=== PATIENT | female | born 1970 | race Caucasian/White ===

== ENCOUNTER 2020-06-12 13:43 | Outpatient (REF) | payer MEDICARE, MEDICAID, SELFPAY ==
--- NOTE | 2020-06-12 13:52 | XR_ITS ---
EXAMINATION: XR HIP, RIGHT CLINICAL INFORMATION: Right hip pain. COMPARISON: None. TECHNIQUE: AP and frog lateral views of the right hip. FINDINGS: The femoral head is well seated in the acetabulum. Hip joint space is preserved. No evidence of subarticular sclerosis or cystic changes. No osteophytic changes are noted. No soft tissue calcifications. Normal osseous mineralization. Visualized right sacroiliac joint and pubic symphysis are unremarkable. Essentially, no significant abnormality of the bones, joints or soft tissues is demonstrated. XR/XR hip RT min 2V IMPRESSION: Unremarkable right hip radiographs.
== END 2020-06-12 13:44 | disposition home or self-care (01) ==
LOC: HO.XRAY 13:43
PROVIDERS: PCP Student in an Organized Health Care Education/Training Program; Visit Provider Student in an Organized Health Care Education/Training Program
DX: M25.551 Pain in right hip (principal)
CPT/HCPCS: 73502

== ENCOUNTER → 2020-06-24 15:33 | Outpatient (BNVA) | payer MEDICARE, MEDICAID, SELFPAY | PROVIDERS: PCP Student in an Organized Health Care Education/Training Program; Referring Provider Student in an Organized Health Care Education/Training Program; Visit Provider Internal Medicine Gastroenterology | DX: Z76.89 Persons encountering health services in other specified circumstances (principal) ==

== ENCOUNTER 2020-08-09 11:13 | Outpatient (REF) | payer MEDICARE, MEDICAID, SELFPAY | END 2020-08-09 11:14 | disposition home or self-care (01) | LOC: HO.LAB 11:13 | PROVIDERS: PCP Student in an Organized Health Care Education/Training Program; Visit Provider Obstetrics & Gynecology | DX: R10.2 Pelvic and perineal pain (principal); B37.3 Candidiasis of vulva and vagina; N92.6 Irregular menstruation, unspecified | CPT/HCPCS: 87491; 87591; 99212 ==

== ENCOUNTER 2020-08-13 13:20 | Outpatient (REF) | payer MEDICARE, MEDICAID, SELFPAY ==
--- NOTE | 2020-08-13 13:24 | US_ITS ---
EXAMINATION: ULTRASOUND PELVIS COMPLETE. CLINICAL INFORMATION: Pelvic pain. COMPARISON: None TECHNIQUE: Transabdominal and transvaginal ultrasound pelvis is performed. Patient had difficulty tolerating transvaginal ultrasound. FINDINGS: The uterus is anteverted and anteflexed measuring 7.6 cm in length, 3.3 cm AP and 4.2 cm in transverse dimension. Endometrial thickness is 0.3 cm. No focal lesions seen. The cervix appears unremarkable. Both ovaries are not seen. There is no free fluid cul-de-sac. US/US pelvic complete IMPRESSION: Unremarkable uterus. The ovaries are not seen.
--- NOTE | 2020-08-13 13:24 | US_ITS ---
EXAMINATION: ULTRASOUND PELVIS COMPLETE. CLINICAL INFORMATION: Pelvic pain. COMPARISON: None TECHNIQUE: Transabdominal and transvaginal ultrasound pelvis is performed. Patient had difficulty tolerating transvaginal ultrasound. FINDINGS: The uterus is anteverted and anteflexed measuring 7.6 cm in length, 3.3 cm AP and 4.2 cm in transverse dimension. Endometrial thickness is 0.3 cm. No focal lesions seen. The cervix appears unremarkable. Both ovaries are not seen. There is no free fluid cul-de-sac. US/US transvaginal IMPRESSION: Unremarkable uterus. The ovaries are not seen.
== END 2020-08-13 13:21 | disposition home or self-care (01) ==
LOC: HO.US 13:20
PROVIDERS: PCP Student in an Organized Health Care Education/Training Program; Visit Provider Obstetrics & Gynecology
DX: R10.2 Pelvic and perineal pain (principal)
CPT/HCPCS: 76830; 76856

== ENCOUNTER → 2020-08-29 10:53 | Outpatient (BNVA) | payer MEDICARE, MEDICAID, SELFPAY | PROVIDERS: PCP Student in an Organized Health Care Education/Training Program; Visit Provider Obstetrics & Gynecology | DX: Z76.89 Persons encountering health services in other specified circumstances (principal) | CPT/HCPCS: Q3014 ==

== ENCOUNTER → 2020-11-01 08:01 | Outpatient (BNVA) | payer MEDICARE, MEDICAID, SELFPAY | PROVIDERS: PCP Student in an Organized Health Care Education/Training Program; Visit Provider Nurse Practitioner Family | DX: M53.3 Sacrococcygeal disorders, not elsewhere classified (principal); M79.7 Fibromyalgia; Z79.899 Other long term (current) drug therapy | CPT/HCPCS: 99202 ==

== ENCOUNTER 2020-11-05 11:29 | Emergency (ER) | payer MEDICARE, MEDICAID, SELFPAY ==
--- NOTE | ~2020-11-05 | XR_ITS ---
EXAMINATION: XR SHOULDER, LEFT CLINICAL INFORMATION: Left shoulder pain COMPARISON: None TECHNIQUE: Left shoulder is imaged in 3 views. FINDINGS: There is no fracture, dislocation, destructive process. The glenohumeral joint appears normal. The acromioclavicular alignment is normal. There are no visible rotator cuff calcifications. XR/XR shoulder LT min 2V IMPRESSION: Normal left shoulder.
--- NOTE | ~2020-11-05 | CT_ITS ---
EXAMINATION: HEAD AND CERVICAL SPINE CT SCAN WITHOUT CONTRAST CLINICAL INFORMATION: Left arm tingling and numbness. Neck pain radiating down left arm. COMPARISON: Previous head CT December 2017 TECHNIQUE: Axial images through the chest and cervical spine without contrast. Sagittal and coronal reconstructions on the technologist workstation were performed. Patient dose 632+3 9 7 mg/cm. This CT examination was performed using dose optimization techniques as appropriate, variously including the following: *Automated exposure control *Adjustment of mA and/or kV according to patient size (this includes techniques or standardized protocols for targeted exams where dose is matched to indication/reason for exam; i.e. extremities or head) *Use of iterative reconstruction technique FINDINGS: Head CT: There is no evidence of an extra-axial collection. There is no evidence of intra-axial or extra-axial hemorrhage. Ventricles and extra-axial CSF spaces are appropriate. Chavez-white matter differentiation is normal. No mass, mass effect or infarct is seen. Review at bone windows is normal. No skull fracture is seen. Visualized paranasal sinuses, mastoid air cells and middle ears are clear. Cervical spine: Bone alignment is normal. No fracture or dislocation is seen. There is degenerative spondylosis at C3-C4, C4-C5 and C5-C6. There is central disc protrusion at C3-C4. There is a central disc protrusion or small herniation seen at C4-C5. There is disc space narrowing at C5-C6. There is disc osteophyte complex causing mild to moderate spinal stenosis and bilateral neuroforaminal narrowing at C5-C6. Facet joints are normal. Prevertebral soft tissues are normal. The left lobe of the thyroid gland has been removed. There is shotty bilateral cervical lymphadenopathy. No enlarged lymph nodes are seen. Visualized lung apices are clear. CT/CT cervical spine wo con IMPRESSION: Head CT: Unremarkable exam. Cervical spine: Degenerative changes greatest at C5-C6 where there is degenerative spondylosis and degenerative disc disease and mild to moderate spinal stenosis and bilateral neural foraminal narrowing from disc osteophyte complex. Small central disc herniation or disc protrusion at C4-C5 and small central disc protrusion at C3-C4.
[2020-11-05 11:32] VITALS: BP 119/78; PULSE 66; RESP 18; TEMP 37.1; O2SAT 100; BMI 27.6
--- NOTE | 2020-11-05 11:36 | ECG_ITS ---
Test Reason : EXTREMITY PAIN Blood Pressure : / mmHG Vent. Rate : 062 BPM Atrial Rate : 062 BPM P-R Int : 150 ms QRS Dur : 094 ms QT Int : 412 ms P-R-T Axes : 047 -33 030 degrees QTc Int : 418 ms Normal sinus rhythm Left axis deviation Incomplete right bundle branch block Abnormal ECG When compared with ECG of 16-MAY-2020 09:26, Incomplete right bundle branch block is now Present Referred By: Generic ED Physician Electronically Signed By:STEVEN DALE MD
--- NOTE | 2020-11-05 12:08 | ED_ITS ---
HPI - Extremity Problem General Chief complaint: Extremity Injury, Upper <ANGELINA Sanches Last Filed: 11/05/20 21:17> Stated complaint: left shoulder and back pain <ANGELINA Sanches Last Filed: 11/05/20 21:17> Time Seen by Provider: 11/05/20 11:41 <ANGELINA Sanches Last Filed: 11/05/20 21:17> Source: patient <ANGELINA Sanches Last Filed: 11/05/20 21:17> Mode of arrival: ambulatory <ANGELINA Sanches Last Filed: 11/05/20 21:17> Limitations: no limitations <ANGELINA Sanches Last Filed: 11/05/20 21:17> History of Present Illness HPI Narrative: Patient presents to ED for left shoulder/left necj radiating down left arm/neck with tingling sensation/numbness/sensation of arm feeling heavy and left trapezius and upper back since yesterday. Patient denies any chest pain, chest pain on inspiration, shortness of breath, recent trauma to the chest, back, or left upper extremity. Patient denies any swelling of left upper extremity,redness, fever, or chills. Patient denies any slurred speech, loss of vision, paralysis of extremity, headache, or dizziness. Patient denies any history of IV drug use <ANGELINA Sanches - Last Filed: 11/05/20 21:17> Related Data Home medications: Home Medications Medication Instructions Recorded Confirmed amitriptyline 50 mg tablet 50 mg PO BEDTIME 08/09/20 11/01/20 azithromycin 250 mg tablet mg PO DIRECTED 08/09/20 08/29/20 cyclobenzaprine 10 mg tablet 10 mg PO TID 08/09/20 11/01/20 diazepam 5 mg tablet 5 mg PO TID PRN 08/09/20 08/29/20 famotidine 20 mg tablet 20 mg PO BEDTIME 08/09/20 08/29/20 fluticasone propionate 50 2 spray INTRANASAL DAILY 08/09/20 11/01/20 mcg/actuation nasal spray,suspension hydroxyzine HCl 50 mg tablet 50 mg PO TID 08/09/20 08/29/20 ibuprofen 600 mg tablet 600 mg PO TID 08/09/20 08/29/20 ketorolac 10 mg tablet 10 mg PO Q6H PRN 08/09/20 08/29/20 loratadine 10 mg tablet 10 mg PO DAILY 08/09/20 11/01/20 meloxicam 7.5 mg tablet mg PO 08/09/20 11/01/20 naproxen 500 mg tablet 500 mg PO Q12H PRN 08/09/20 08/29/20 paroxetine HCl 40 mg tablet 40 mg PO DAILY 08/09/20 11/01/20 ranitidine HCl 150 mg tablet mg PO 08/09/20 08/29/20 sennosides 8.6 mg-docusate sodium 1 tab PO DAILY 08/09/20 08/29/20 50 mg tablet Previous Rx's Medication Instructions Recorded omeprazole 20 mg capsule,delayed 20 mg PO BID 30 Days #60 cap 07/25/20 release prednisone 40 mg PO DAILY #10 tab 11/05/20 tramadol 50 mg PO TID PRN 3 Days #9 tab 11/05/20 cyclobenzaprine 10 mg PO TID PRN #14 tab 11/15/20 lidocaine 2 patch TOPICAL DAILY PRN #30 ea 11/15/20 oxycodone 5 mg PO Q6H PRN #14 tab 11/15/20 <ANGELINA Sanches - Last Filed: 11/05/20 21:17> Allergies/Adverse reactions: Allergies Allergy/AdvReac Type Severity Reaction Status Date / Time No Known Allergies Allergy Verified 11/15/20 20:17 [No Known Allergies*] <ANGELINA Sanches - Last Filed: 11/05/20 21:17> Review of Systems Review of Systems: Yes all other systems are reviewed and are negative <ANGELINA Sanches - Last Filed: 11/05/20 21:17> Constitutional: Constitutional: Reports as per HPI and Reports no additional constitutional complaints <ANGELINA Sanches Last Filed: 11/05/20 21:17> Eyes: Eyes: Reports as per HPI and Reports no additional eye complaints <ANGELINA Sanches - Last Filed: 11/05/20 21:17> ENT: Reports system reviewed and no additional complaints, except as documented and Reports as per HPI <ANGELINA Sanches - Last Filed: 11/05/20 21:17> Cardiovascular: Cardiovascular: Reports as per HPI and Reports no additional cardiovascular complaints <ANGELINA Sanches - Last Filed: 11/05/20 21:17> Respiratory: Respiratory: Reports as per HPI and Reports no additional respiratory complaints <ANGELINA Sanches - Last Filed: 11/05/20 21:17> Gastrointestinal: Gastrointestinal: Reports as per HPI and Reports no addition al gastrointestinal complaints <ANGELINA Sanches - Last Filed: 11/05/20 21:17> Genitourinary: Genitourinary: Reports no additional female genitourinary complaints and Reports as per HPI <ANGELINA Sanches - Last Filed: 11/05/20 21:17> Musculoskeletal: Musculoskeletal: Reports no additional musculoskeletal complaints, Reports as per HPI and Reports arthralgias (Shoulder pain) <ANGELINA Sanches - Last Filed: 11/05/20 21:17> Neurologic: Reports system reviewed and no additional complaints, except as documented and Reports as per HPI <ANGELINA Sanches - Last Filed: 11/05/20 21:17> Psychiatric: Psychiatric: Reports no additional psychiatric complaints and Reports as per HPI <ANGELINA Sanches - Last Filed: 11/05/20 21:17> [facility] Past Medical History Medical History: Medical History Cyst of left breast (~2008) Herniated intervertebral disc <ANGELINA Sanches - Last Filed: 11/05/20 21:17> Surgical History: Surgical History H/O section H/O left breast biopsy (10/27/11) History of esophagogastroduodenoscopy (EGD) Hx of colonoscopy Hx of laparoscopy S/P breast biopsy Status post appendectomy Thyroid nodule <ANGELINA Sanches Last Filed: 11/05/20 21:17> Family History Family History: Family History Father Suicide Mother Fibrous breast lumps H/O thyroidectomy Diabetes Brother Collapse of both lungs Kidney problem H/O thyroidectomy Son Family history of Klinefelter syndrome Maternal Grandmother Stomach cancer Maternal Grandfather Lung cancer Family/Other Breast cancer Depression Maternal Aunt Ovarian cancer Paternal Uncle History of open heart surgery Maternal Uncle Suicide <ANGELINA Sanches - Last Filed: 11/05/20 21:17> Social History Social History: Social History Household Members: Children Alcohol intake: current Alcohol intake frequency: holidays/special occasions only Smoking Status: Current every day smoker Packs Per Day: 0.75 Cigarettes Per Day: 15.0 <ANGELINA Sanches - Last Filed: 11/05/20 21:17> Physical Exam Vital Signs: Vital Signs: Last Vital Signs Temp 98.7 F 11/05/20 11:32 Pulse 57 11/05/20 15:09 Resp 16 11/05/20 15:09 BP 112/79 11/05/20 15:09 Pulse Ox 100 11/05/20 15:09 Body Mass Index 27.6 <ANGELINA Sanches - Last Filed: 11/05/20 21:17> Vital Signs: Last Vital Signs Temp 98.7 F 11/05/20 11:32 Pulse 57 11/05/20 15:09 Resp 16 11/05/20 15:09 BP 112/79 11/05/20 15:09 Pulse Ox 100 11/05/20 15:09 Body Mass Index 27.6 <Oren Swenson MD - Last Filed: 11/25/20 07:16> Const: General: cooperative, healthy appearing, comfortable, no acute distress, well developed, alert, awake and Physically active <ANGELINA Sanches - Last Filed: 11/05/20 21:17> Orientation/consciousness: patient oriented x3 <ANGELINA Sanches - Last Filed: 11/05/20 21:17> HENMT: Head: Yes normal to inspection, Yes No palpable skull fracture present, Yes normocephalic, Yes atraumatic and No abrasion <ANGELINA Sanches - Last Filed: 11/05/20 21:17> Eyes: General: appearance normal, both eyes and all related structures <ANGELINA Sanches Last Filed: 11/05/20 21:17> Neck: Neck: Yes normal visual inspection, Yes full ROM, Yes no lymphadenopathy, Yes no meningeal signs, Yes trachea midline, Yes supple and No tender <ANGELINA Sanches Last Filed: 11/05/20 21:17> Chest: Chest palpation & inspection: normal inspection of the chest and normal palpation of entire chest wall <ANGELINA Sanches Last Filed: 11/05/20 21: 17> Resp: Effort & Inspection: normal respiratory effort and able to speak in complete sentences <ANGELINA Sanches Last Filed: 11/05/20 21:17> Auscultation: clear to auscultation bilaterally <ANGELINA Sanches Last Filed: 11/05/20 21:17> Cardio: Jugular venous distension: no JVD <ANGELINA Sanches Last Filed: 11/05/20 21:17> Heart sounds: S1 normal heart sound present and S2 normal heart sound present <ANGELINA Sanches Last Filed: 11/05/20 21:17> GI: Inspection: Yes normal to inspection and No abdominal wall ecchymosis <ANGELINA Sanches Last Filed: 11/05/20 21:17> Palpation (GI): Soft to palpation, not firm, nontender, no guarding and not rigid <ANGELINA Sanches Last Filed: 11/05/20 21:17> : General: No CVA tenderness and Yes no CVA tenderness <ANGELINA Sanches Last Filed: 11/05/20 21:17> Back/Spine/Pelvis: Back: no CVA tenderness, No CVA tenderness and No back tenderness <ANGELINA Sanches Last Filed: 11/05/20 21:17> Skin: General skin exam: no rashes or lesions noted and elasticity normal <ANGELINA Snaches Last Filed: 11/05/20 21:17> Neuro: Other: Negative slurred speech. Negative pronator drift. Negative facial droop. All extremities equal strength 5+. negative rhomberg. rapid hand movement/finger to nose test is intact. <ANGELINA Sanches Last Filed: 11/05/20 21:17> General: patient oriented x3, gait normal, no meningeal signs and CN's II-XI intact bilaterally <ANGELINA Sanches Last Filed: 11/05/20 21:17> Cranial nerves: Yes CN's II-XII intact bilaterally <ANGELINA Sanches - Last Filed: 11/05/20 21:17> Extrem: Other: Positive for left shoulder pain on range of motion. Positive for decreased range of motion of left upper extremity due to shoulder pain. Positive for tenderness on palpation of left shoulder and trapezius. Palpable radial and brachial of left upper extremity. Left upper extremity negative for any swelling, redness, red streaks, or mass. Neuro exam and upper extremity intact. <ANGELINA Sanches - Last Filed: 11/05/20 21:17> Psych: Appearance: grossly normal, well kempt and not disheveled <ANGELINA Sanches - Last Filed: 11/05/20 21:17> Course Course Course Narrative: Patient states history of fibroid or myalgia. This may be a fibromyalgia exacerbation but due to age patient will have EKG and troponin. Unlikely stroke with due to patient stating left arm for heavy was sent for head CT scan, if positive patient will be out the window since symptoms started yesterday. Negative for any neuro focal deficit <ANGELINA Sanches - Last Filed: 11/05/20 21:17> I have reviewed the chart <Oren Swenson MD - Last Filed: 11/25/20 07:16> Reevaluation(s) Reevaluation #1: Patient's troponin negative after having symptoms since yesterday. EKG does not show any new changes. Shoulder x-ray came back normal. Head CT came back negative for stroke as expected. Neck CT shows severe cervical radiculopathy with some protrusion. Patient was informed she should follow up with the PCP for referral for spine surgeon. Patient states she has NSAIDs and muscle relaxers at home with still not help with the pain. Patient informed will prescribed from narcotic, but she should not take it with the muscle relaxer. <ANGELINA Sanches - Last Filed: 11/05/20:17> Time: 15:07 <ANGELINA Sanches - Last Filed: 11/05/20 21:17> Reevaluation #2: EKG is normal sinus rhythm. Left axis deviation. Incomplete right bundle-branch bronch. Regular rate 62. Pr interval 150. QRS 94. QTC 418. Negative STEMI . Patient able to move left upper extremity and feels better after receiving pain meds. <ANGELINA Sanches - Last Filed: 11/05/20 21:17> Time: 15:09 <ANGELINA Sanches - Last Filed: 11/05/20 21:17> MDM - Extremity (Nontraumatic) MDM Narrative Medical decision making narrative: Cervical radiculopathy <ANGELINA Sanches - Last Filed: 11/05/20 21:17> Lab Data Result diagrams: : 11/05/20 12:54 11/05/20 12:54 <ANGELINA Sanches - Last Filed: 11/05/20 21:17> Labs: Lab Results 11/05/20 11/05/20 11/05/20 Range/Units 12:54 12:54 12:54 WBC 5.5 (4.8-10.8) X10*3/uL RBC 4.28 (4.20-5.50) X10*6/uL Hgb 12.0 (12.0-16.0) g/dl Hct 39.3 (37-47) % MCV 91.8 (80-98) fL MCH 28.0 (27.0-33.0) pg MCHC 30.5 L (31.0-35.0) g/dl RDW 13.2 (11.0-16.0) % Plt Count 245 (160-400) X10*3/uL MPV 11.0 (9.4-12.3) fL Immature Gran % (Auto) 0.2 (0.0-0.4) % Neut % (Auto) 61.9 (45-73) % Lymph % (Auto) 30.2 (20-40) % [place] % (Auto) 6.0 (2-11) % Eos % (Auto) 1.3 (0-4) % Baso % (Auto) 0.4 (0-2) % Lymph # (Auto) 1.7 (1.2-4.9) X10*3/uL [place] # (Auto) 0.3 (0.1-1.2) X10*3/uL Eos # (Auto) 0.1 (0.0-0.4) X10*3/uL Baso # (Auto) 0.0 (0.0-0.2) X10*3/uL Abs Immat Gran (auto) 0.01 (0.00-0.03) X10*3/uL Absolute Neuts (auto) 3.4 (2.0-8.3) X10*3/uL Absolute Nucleated RBC 0.000 (0.0-0.012) X10*3/uL Nucleated RBC % (auto) 0.0 (0.0-0.2) /100WBC PT 11.2 (10.8-13.0) SEC INR 0.9 (0.9-1.1) APTT 29.6 (24.1-38.0) SEC Sodium 140 (135-145) mmol/L Potassium 4.3 (3.3-5.1) mmol/L Chloride 108 (96-108) mmol/L Carbon Dioxide 27 (22-29) mmol/L Anion Gap 9 L (12-20) BUN 12 (9-16) mg/dL Creatinine 0.83 (0.5-1.4) mg/dL Estim Creat Clear Calc 72.7 Estimated GFR > 60 Random Glucose 91 (60-115) mg/dL Calcium 10.2 (8.4-10.2) mg/dL Total Bilirubin 0.7 (0.0-1.0) mg/dL AST 16 (5-31) U/L ALT 13 (0-31) U/L Alkaline Phosphatase 115 (39-117) U/L Troponin I High Sens (<3.5-17.0) ng/L Total Protein 6.4 L (6.5-8.0) g/dL Albumin 4.3 (3.5-5.0) g/dL 11/05/20 Range/Units 12:54 WBC (4.8-10.8) X10*3/uL RBC (4.20-5.50) X10*6/uL Hgb (12.0-16.0) g/dl Hct (37-47) % MCV (80-98) fL MCH (27.0-33.0) pg MCHC (31.0-35.0) g/dl RDW (11.0-16.0) % Plt Count (160-400) X10*3/uL MPV (9.4-12.3) fL Immature Gran % (Auto) (0.0-0.4) % Neut % (Auto) (45-73) % Lymph % (Auto) (20-40) % [place] % (Auto) (2-11) % Eos % (Auto) (0-4) % Baso % (Auto) (0-2) % Lymph # (Auto) (1.2-4.9) X10*3/uL [place] # (Auto) (0.1-1.2) X10*3/uL Eos # (Auto) (0.0-0.4) X10*3/uL Baso # (Auto) (0.0-0.2) X10*3/uL Abs Immat Gran (auto) (0.00-0.03) X10*3/uL Absolute Neuts (auto) (2.0-8.3) X10*3/uL Absolute Nucleated RBC (0.0-0.012) X10*3/uL Nucleated RBC % (auto) (0.0-0.2) /100WBC PT (10.8-13.0) SEC INR (0.9-1.1) APTT (24.1-38.0) SEC Sodium (135-145) mmol/L Potassium (3.3-5.1) mmol/L Chloride (96-108) mmol/L Carbon Dioxide (22-29) mmol/L Anion Gap (12-20) BUN (9-16) mg/dL Creatinine (0.5-1.4) mg/dL Estim Creat Clear Calc Estimated GFR Random Glucose (60-115) mg/dL Calcium (8.4-10.2) mg/dL Total Bilirubin (0.0-1.0) mg/dL AST (5-31) U/L ALT (0-31) U/L Alkaline Phosphatase (39-117) U/L Troponin I High Sens < 3.5 (<3.5-17.0) ng/L Total Protein (6.5-8.0) g/dL Albumin (3.5-5.0) g/dL <ANGELINA Sanches - Last Filed: 11/05/20 21:17> Lab Results 11/05/20 11/05/20 11/05/20 Range/Units 12:54 12:54 12:54 WBC 5.5 (4.8-10.8) X10*3/uL RBC 4.28 (4.20-5.50) X10*6/uL Hgb 12.0 (12.0-16.0) g/dl Hct 39.3 (37-47) % MCV 91.8 (80-98) fL MCH 28.0 (27.0-33.0) pg MCHC 30.5 L (31.0-35.0) g/dl RDW 13.2 (11.0-16.0) % Plt Count 245 (160-400) X10*3/uL MPV 11.0 (9.4-12.3) fL Immature Gran % (Auto) 0.2 (0.0-0.4) % Neut % (Auto) 61.9 (45-73) % Lymph % (Auto) 30.2 (20-40) % [place] % (Auto) 6.0 (2-11) % Eos % (Auto) 1.3 (0-4) % Baso % (Auto) 0.4 (0-2) % Lymph # (Auto) 1.7 (1.2-4.9) X10*3/uL [place] # (Auto) 0.3 (0.1-1.2) X10*3/uL Eos # (Auto) 0.1 (0.0-0.4) X10*3/uL Baso # (Auto) 0.0 (0.0-0.2) X10*3/uL Abs Immat Gran (auto) 0.01 (0.00-0.03) X10*3/uL Absolute Neuts (auto) 3.4 (2.0-8.3) X10*3/uL Absolute Nucleated RBC 0.000 (0.0-0.012) X10*3/uL Nucleated RBC % (auto) 0.0 (0.0-0.2) /100WBC PT 11.2 (10.8-13.0) SEC INR 0.9 (0.9-1.1) APTT 29.6 (24.1-38.0) SEC Sodium 140 (135-145) mmol/L Potassium 4.3 (3.3-5.1) mmol/L Chloride 108 (96-108) mmol/L Carbon Dioxide 27 (22-29) mmol/L Anion Gap 9 L (12-20) BUN 12 (9-16) mg/dL Creatinine 0.83 (0.5-1.4) mg/dL Estim Creat Clear Calc 72.7 Estimated GFR > 60 Random Glucose 91 (60-115) mg/dL Calcium 10.2 (8.4-10.2) mg/dL Total Bilirubin 0.7 (0.0-1.0) mg/dL AST 16 (5-31) U/L ALT 13 (0-31) U/L Alkaline Phosphatase 115 (39-117) U/L Troponin I High Sens (<3.5-17.0) ng/L Total Protein 6.4 L (6.5-8.0) g/dL Albumin 4.3 (3.5-5.0) g/dL 11/05/20 Range/Units 12:54 WBC (4.8-10.8) X10*3/uL RBC (4.20-5.50) X10*6/uL Hgb (12.0-16.0) g/dl Hct (37-47) % MCV (80-98) fL MCH (27.0-33.0) pg MCHC (31.0-35.0) g/dl RDW (11.0-16.0) % Plt Count (160-400) X10*3/uL MPV (9.4-12.3) fL Immature Gran % (Auto) (0.0-0.4) % Neut % (Auto) (45-73) % Lymph % (Auto) (20-40) % [place] % (Auto) (2-11) % Eos % (Auto) (0-4) % Baso % (Auto) (0-2) % Lymph # (Auto) (1.2-4.9) X10*3/uL [place] # (Auto) (0.1-1.2) X10*3/uL Eos # (Auto) (0.0-0.4) X10*3/uL Baso # (Auto) (0.0-0.2) X10*3/uL Abs Immat Gran (auto) (0.00-0.03) X10*3/uL Absolute Neuts (auto) (2.0-8.3) X10*3/uL Absolute Nucleated RBC (0.0-0.012) X10*3/uL Nucleated RBC % (auto) (0.0-0.2) /100WBC PT (10.8-13.0) SEC INR (0.9-1.1) APTT (24.1-38.0) SEC Sodium (135-145) mmol/L Potassium (3.3-5.1) mmol/L Chloride (96-108) mmol/L Carbon Dioxide (22-29) mmol/L Anion Gap (12-20) BUN (9-16) mg/dL Creatinine (0.5-1.4) mg/dL Estim Creat Clear Calc Estimated GFR Random Glucose (60-115) mg/dL Calcium (8.4-10.2) mg/dL Total Bilirubin (0.0-1.0) mg/dL AST (5-31) U/L ALT (0-31) U/L Alkaline Phosphatase (39-117) U/L Troponin I High Sens < 3.5 (<3.5-17.0) ng/L Total Protein (6.5-8.0) g/dL Albumin (3.5-5.0) g/dL <Oren Swenson MD - Last Filed: 11/25/20 07:16> Discharge Plan Discharge Clinical Impression: Cervical radiculopathy <ANGELINA Sanches - Last Filed: 11/05/20 21:17> Patient Disposition: Home, Self-Care <ANGELINA Sanches - Last Filed: 11/05/20 21:17> Instructions: Cervical Disc Herniation (ED), Cervical Radiculopathy (ED) <ANGELINA Sanches - Last Filed: 11/05/20 21:17> Additional Instructions: Return to the ED immediately for any chest pain, shortness of breath, paralysis of upper extremity, headache, slurred speech, dizziness, nausea, v omiting, swelling of upper extremity, redness, or any other concerning symptoms. <ANGELINA Sanches - Last Filed: 11/05/20 21:17> Prescriptions: New tramadol 50 mg tablet 50 mg PO TID PRN (Reason: pain) 3 Days Qty: 9 RF: 0 prednisone 20 mg tablet 40 mg PO DAILY Qty: 10 RF: 0 No Action omeprazole 20 mg capsule,delayed release(DR/EC) 20 mg PO BID 30 Days Qty: 60 RF: 3 oxycodone 5 mg tablet 5 mg PO Q6H PRN (Reason: pain) Qty: 14 RF: 0 lidocaine 5 % adhesive patch,medicated 2 patch topical DAILY PRN (Reason: Lower back pain) Qty: 30 RF: 0 cyclobenzaprine 10 mg tablet 10 mg PO TID PRN (Reason: muscle spasm) Qty: 14 RF: 0 amitriptyline 50 mg tablet 50 mg PO BEDTIME RF: 0 ranitidine HCl 150 mg tablet PO RF: 0 meloxicam 7.5 mg tablet PO RF: 0 paroxetine HCl 40 mg tablet 40 mg PO DAILY RF: 0 fluticasone propionate 50 mcg/actuation spray,suspension 2 spray intranasal DAILY RF: 0 azithromycin 250 mg tablet PO DIRECTED RF: 0 loratadine 10 mg tablet 10 mg PO DAILY RF: 0 hydroxyzine HCl 50 mg tablet 50 mg PO TID RF: 0 diazepam 5 mg tablet 5 mg PO TID PRNRF: 0 ibuprofen 600 mg tablet 600 mg PO TID RF: 0 naproxen 500 mg tablet 500 mg PO Q12H PRN (Reason: pain) RF: 0 famotidine 20 mg tablet 20 mg PO BEDTIME RF: 0 ketorolac 10 mg tablet 10 mg PO Q6H PRNRF: 0 cyclobenzaprine 10 mg tablet 10 mg PO TID RF: 0 sennosides-docusate sodium 8.6-50 mg tablet 1 tab PO DAILY RF: 0 <ANGELINA Sanches - Last Filed: 11/05/20 21:17> Referrals: Peace Gao MD [Primary Care Provider] - 2 days (CT scan shows severe cervical degenerative disc disease with disc protrusion/herniation. May need referral to spine surgeon. May need MRI. Shoulder x-ray normal. Troponin negative. EKG negative for STEMI. Head CT scan came back normal) <ANGELINA Sanches - Last Filed: 11/05/20 21:17> Interventions: ED Discharge Assessment Last Done: 11/05/20 15:43 <ANGELINA Sanches - Last Filed: 11/05/20 21:17> Discharge Date/Time: 11/05/20 15:50 <ANGELINA Sanches - Last Filed: 11/05/20 21:17> Print Language: [place] <ANGELINA Sanches - Last Filed: 11/05/20 21:17>
[2020-11-05] MEDS: Cyclobenzaprine HCl 10 MG TABLET PO (12:26)
--- NOTE | 2020-11-05 12:38 | PC.NURSE ---
Pt medicated per emar, and transported to xray.
[2020-11-05 13:00] LABS: MANUAL DIFF FLAG NO
[2020-11-05 13:03] LABS: Basophils Percent Auto 0.4 % (0-2); Eosinophils Absolute Auto 0.1 X10*3/uL (0.0-0.4); Eosinophils Percent Auto 1.3 % (0-4); Hematocrit 39.3 % (37-47); Imm Gran Abs Auto 0.01 X10*3/uL (0.00-0.03); Imm Gran Pct Auto 0.2 % (0.0-0.4); Lymphocytes Absolute Auto 1.7 X10*3/uL (1.2-4.9); Lymphocytes Percent Auto 30.2 % (20-40); Mean Corpuscular HGB Conc 30.5 g/dl (31.0-35.0); Mean Corpuscular Volume 91.8 fL (80-98); Monocytes Absolute Auto 0.3 X10*3/uL (0.1-1.2); Neutrophils Absolute Auto 3.4 X10*3/uL (2.0-8.3); Neutrophils Percent Auto 61.9 % (45-73); Platelet Count 245 X10*3/uL (160-400); Red Blood Count 4.28 X10*6/uL (4.20-5.50); Red Cell Distribution Width 13.2 % (11.0-16.0); White Blood Count 5.5 X10*3/uL (4.8-10.8)
[2020-11-05 13:23] LABS: INTERNATIONAL NORM RATIO 0.9 (0.9-1.1); Prothrombin Time 11.2 SEC (10.8-13.0)
[2020-11-05 13:25] LABS: Partial Thromboplastin Time 29.6 SEC (24.1-38.0)
[2020-11-05 13:35] LABS: Troponin-I High Sensitivity < 3.5 ng/L (<3.5-17.0)
[2020-11-05 13:41] LABS: Alanine Aminotransferase 13 U/L (0-31); Albumin Level 4.3 g/dL (3.5-5.0); Alkaline Phosphatase 115 U/L (39-117); Anion Gap 9 (12-20); Aspartate Amino Transferase 16 U/L (5-31); Bilirubin Total 0.7 mg/dL (0.0-1.0); Blood Urea Nitrogen 12 mg/dL (9-16); Calcium 10.2 mg/dL (8.4-10.2); Carbon Dioxide 27 mmol/L (22-29); Chloride 108 mmol/L (96-108); Creatinine Clr Calc Pharmacy 72.7; Estimated Glomerular Filt Rate > 60; Glucose Random 91 mg/dL (60-115); Potassium 4.3 mmol/L (3.3-5.1); Sodium 140 mmol/L (135-145); Total Protein 6.4 g/dL (6.5-8.0)
[2020-11-05] MEDS: Ketorolac Tromethamine 30 MG/ML VIAL IM (15:08)
[2020-11-05 15:09] VITALS: BP 112/79; PULSE 57; RESP 16; O2SAT 100
== END 2020-11-05 15:50 | disposition home or self-care (01) ==
PROVIDERS: Physician Assistant; Emergency Provider Emergency Medicine; PCP Student in an Organized Health Care Education/Training Program
DX: M54.12 Radiculopathy, cervical region (principal); F17.210 Nicotine dependence, cigarettes, uncomplicated
CPT/HCPCS: 36415; 70450; 72125; 73030; 80053; 84484; 85025; 85610; 85730; 93005; 96374; 99284; J1885

== ENCOUNTER 2020-11-15 19:16 | Emergency (ER) | payer MEDICARE, MEDICAID, SELFPAY ==
--- NOTE | ~2020-11-15 | XR_ITS ---
EXAMINATIONS: LUMBOSACRAL SPINE 3 VIEWS AND SACRUM 2 VIEWS CLINICAL INFORMATION: Pain after fall. COMPARISON: None. TECHNIQUE: AP, lateral, spot lateral views of the lumbosacral spine are provided. AP and lateral views of the sacrum and coccyx are provided. FINDINGS: There are no fractures. The lumbar vertebrae are in normal alignment. Disc heights and vertebral body heights are well-preserved. The SI joints are unremarkable. Surgical clips are identified within the right upper quadrant. XR/XR sacrum coccyx min 2V IMPRESSION: Unremarkable lumbosacral spine and sacral series.
--- NOTE | ~2020-11-15 | XR_ITS ---
EXAMINATIONS: LUMBOSACRAL SPINE 3 VIEWS AND SACRUM 2 VIEWS CLINICAL INFORMATION: Pain after fall. COMPARISON: None. TECHNIQUE: AP, lateral, spot lateral views of the lumbosacral spine are provided. AP and lateral views of the sacrum and coccyx are provided. FINDINGS: There are no fractures. The lumbar vertebrae are in normal alignment. Disc heights and vertebral body heights are well-preserved. The SI joints are unremarkable. Surgical clips are identified within the right upper quadrant. XR/XR lumbar spine 2-3V IMPRESSION: Unremarkable lumbosacral spine and sacral series.
[2020-11-15 19:27] VITALS: BP 112/69; PULSE 84; RESP 18; TEMP 36.8; O2SAT 100; BMI 27.6
--- NOTE | 2020-11-15 21:04 | ED_ITS ---
HPI - Fall General Chief Complaint: Fall Stated Complaint: fall Source: patient Mode of arrival: ambulatory Limitations: no limitations History of Present Illness HPI Narrative: [age] female with past medical history of GERD, fibromyalgia, depression, anxiety, lumbar disc herniation and asthma presents with lower back and coccyx pain after a slip and fall down the stairs. Patient stated that she missed a stair slipped and landed on her bottom. She does not report any other injuries, denies any prodromal events prior to the fall. She denies chest pain or pressure, palpitations, shortness of breath, abdominal pain, abdominal distention, symptoms indicating cauda equina, loss of sensation to or any other concerning symptoms. MD complaint: fall Onset (ago): hour(s) (Within the hour of arrival) Fall from: down stairs (#) Fall witnessed: no Place fall occurred: home Loss of consciousness: none Prolonged down time: no Symptoms prior to fall: none Context: tripped/slipped Location of injury: back and buttocks Severity: severe Severity scale (1-10): 10 Quality: aching, spasming and throbbing Associated symptoms (after fall): denies Related Data Home Medications Medication Instructions Recorded Confirmed amitriptyline 50 mg tablet 50 mg PO BEDTIME 08/09/20 11/01/20 azithromycin 250 mg tablet mg PO DIRECTED 08/09/20 08/29/20 cyclobenzaprine 10 mg tablet 10 mg PO TID 08/09/20 11/01/20 diazepam 5 mg tablet 5 mg PO TID PRN 08/09/20 08/29/20 famotidine 20 mg tablet 20 mg PO BEDTIME 08/09/20 08/29/20 fluticasone propionate 50 2 spray INTRANASAL DAILY 08/09/20 11/01/20 mcg/actuation nasal spray,suspension hydroxyzine HCl 50 mg tablet 50 mg PO TID 08/09/20 08/29/20 ibuprofen 600 mg tablet 600 mg PO TID 08/09/20 08/29/20 ketorolac 10 mg tablet 10 mg PO Q6H PRN 08/09/20 08/29/20 loratadine 10 mg tablet 10 mg PO DAILY 08/09/20 11/01/20 meloxicam 7.5 mg tablet mg PO 08/09/20 11/01/20 naproxen 500 mg tablet 500 mg PO Q12H PRN 08/09/20 08/29/20 paroxetine HCl 40 mg tablet 40 mg PO DAILY 08/09/20 11/01/20 ranitidine HCl 150 mg tablet mg PO 08/09/20 08/29/20 sennosides 8.6 mg-docusate sodium 1 tab PO DAILY 08/09/20 08/29/20 50 mg tablet Previous Rx's Medication Instructions Recorded omeprazole 20 mg capsule,delayed 20 mg PO BID 30 Days #60 cap 07/25/20 release prednisone 40 mg PO DAILY #10 tab 11/05/20 tramadol 50 mg PO TID PRN 3 Days #9 tab 11/05/20 cyclobenzaprine 10 mg PO TID PRN #14 tab 11/15/20 lidocaine 2 patch TOPICAL DAILY PRN #30 ea 11/15/20 oxycodone 5 mg PO Q6H PRN #14 tab 11/15/20 Allergies Allergy/AdvReac Type Severity Reaction Status Date / Time No Known Allergies Allergy Verified 11/15/20 20:17 [No Known Allergies*] Review of Systems Review of Systems: Constitutional: No Fever, No Chills ENT/Mouth: No Ear Pain, No Hoarseness, No sore throat Eyes: No Eye Pain, No Swelling, No Redness, No Foreign Body Cardiovascular: No Chest Pain, No SOB Respiratory: No Cough, No Dyspnea Gastrointestinal: No Nausea, No Vomiting, No Diarrhea, No abdominal Pain Genitourinary: No Dysuria, No Hematuria Musculoskeletal: positive lower back and coccyx pain, No Myalgias, No Joint Swelling Skin: No Skin lacerations, No rash Neuro: No Weakness, No Numbness, No Paresthesias, No Loss of Consciousness, No Dizziness, No Headache Psych: No Anxiety/Panic, No Depression Heme/Lymph: no easy bruising, no Lymphadenopathy Endocrine: No Polyuria, No Polydipsia Yes all other systems are reviewed and are negative PMFSH Past Medical History Attestation statement: The following information was validated with the patient. Source: old records reviewed Medical History Cyst of left breast (~2008) Herniated intervertebral disc Surgical History H/O section H/O left breast biopsy (10/27/11) History of esophagogastroduodenoscopy (EGD) Hx of colonoscopy Hx of laparoscopy S/P breast biopsy Status post appendectomy Thyroid nodule Family History Family History Father Suicide Mother Fibrous breast lumps H/O thyroidectomy Diabetes Brother Collapse of both lungs Kidney problem H/O thyroidectomy Son Family history of Klinefelter syndrome Maternal Grandmother Stomach cancer Maternal Grandfather Lung cancer Family/Other Breast cancer Depression Maternal Aunt Ovarian cancer Paternal Uncle History of open heart surgery Maternal Uncle Suicide Social History Social History Household Members: Children Alcohol intake: current Alcohol intake frequency: holidays/special occasions only Smoking Status: Current every day smoker Packs Per Day: 0.75 Cigarettes Per Day: 15.0 Any prior treatment program specific to substance use: No Advance Directives: No Advance Directives Information Provided: No Physical Exam Vital Signs: Vital Signs: Last Vital Signs Temp 98.2 F 11/15/20 19:27 Pulse 60 11/15/20 22:22 Resp 16 11/15/20 22:22 BP 111/76 11/15/20 22:22 Pulse Ox 99 11/15/20 22:22 Body Mass Index 27.6 Course Course Course Narrative: [age] female with past medical history of GERD, fibromyalgia, depression, anxiety, lumbar disc herniation and asthma presents with lower back and coccyx pain after a slip and fall down the stairs. Plan of care is for x-rays and treat for pain. Patient does have vertebral tenderness from mid lumbar to the sacrum. No step-offs. Has full range of motion to lower extremities, strength 5/5, no indication of cauda equina. X-rays negative for acute fracture, however injuries highly suspicious for coccyx brain. Will treat with IM morphine and p.o. cyclobenzaprine and topical Lidoderm patches. Will give a prescription for oxycodone, patient does have nahed or prescription for tramadol and does understand that oxycodone has high risk for addiction and abuse. Patient verbalized understanding of and agrees plan of care discharge home. MDM - Fall Differential Diagnosis Differential diagnosis: Likely fracture and compression fracture Medical Records Attestation: I reviewed the patient's medical records. Lab Data Attestation: I reviewed the patient's lab results. Imaging Data Sacral and lumbar x-ray: Attestation: I personally reviewed and interpreted this imaging study as follows: Radiologist's impression: EXAMINATIONS: LUMBOSACRAL SPINE 3 VIEWS AND SACRUM 2 VIEWS CLINICAL INFORMATION: Pain after fall. COMPARISON: None. TECHNIQUE: AP, lateral, spot lateral views of the lumbosacral spine are provided. AP and lateral views of the sacrum and coccyx are provided. FINDINGS: There are no fractures. The lumbar vertebrae are in normal alignment. Disc heights and vertebral body heights are well-preserved. The SI joints are unremarkable. Surgical clips are identified within the right upper quadrant. XR/XR sacrum coccyx min 2V IMPRESSION: Unremarkable lumbosacral spine and sacral series. Discharge Plan Discharge Clinical Impression: Coccyx sprain Patient Disposition: Home, Self-Care Instructions: Coccyx Injury (ED) Additional Instructions: You were evaluated for injuries sustained from a fall down stairs. The x-rays of your lumbar spine and coccyx are negative for fracture however your presentation is highly suspicious for coccyx sprain. Please use oxycodone as directed. This medication is a narcotic and has high risk for addiction abuse. Do not drive or operate machinery while taking this medication. Please use MiraLax and Colace as needed to help soften stools. If you notice any symptoms indicating loss of bowel and bladder, inability to urinate or defecate please return to the emergency department immediately as these are emergent neurological symptoms. You must follow-up with primary care within the next week. You may require physical therapy for prolonged treatment. Thank you for choosing this emergency department for evaluation. Please follow-up with primary care physician as needed. Return to the emergency department for any new, concerning, or worsening symptoms. Prescriptions: New oxycodone 5 mg tablet 5 mg PO Q6H PRN (Reason: pain) Qty: 14 RF: 0 lidocaine 5 % adhesive patch,medicated 2 patch topical DAILY PRN (Reason: Lower back pain) Qty: 30 RF: 0 cyclobenzaprine 10 mg tablet 10 mg PO TID PRN (Reason: muscle spasm) Qty: 14 RF: 0 No Action omeprazole 20 mg capsule,delayed release(DR/EC) 20 mg PO BID 30 Days Qty: 60 RF: 3 tramadol 50 mg tablet 50 mg PO TID PRN (Reason: pain) 3 Days Qty: 9 RF: 0 prednisone 20 mg tablet 40 mg PO DAILY Qty: 10 RF: 0 amitriptyline 50 mg tablet 50 mg PO BEDTIME RF: 0 ranitidine HCl 150 mg tablet PO RF: 0 meloxicam 7.5 mg tablet PO RF: 0 paroxetine HCl 40 mg tablet 40 mg PO DAILY RF: 0 fluticasone propionate 50 mcg/actuation spray,suspension 2 spray intranasal DAILY RF: 0 azithromycin 250 mg tablet PO DIRECTED RF: 0 loratadine 10 mg tablet 10 mg PO DAILY RF: 0 hydroxyzine HCl 50 mg tablet 50 mg PO TID RF: 0 diazepam 5 mg tablet 5 mg PO TID PRNRF: 0 ibuprofen 600 mg tablet 600 mg PO TID RF: 0 naproxen 500 mg tablet 500 mg PO Q12H PRN (Reason: pain) RF: 0 famotidine 20 mg tablet 20 mg PO BEDTIME RF: 0 ketorolac 10 mg tablet 10 mg PO Q6H PRNRF: 0 cyclobenzaprine 10 mg tablet 10 mg PO TID RF: 0 sennosides-docusate sodium 8.6-50 mg tablet 1 tab PO DAILY RF: 0 Interventions: ED Discharge Assessment Last Done: 11/15/20 22:29 Discharge Date/Time: 11/15/20 22:30
[2020-11-15] MEDS: Cyclobenzaprine HCl 10 MG TABLET PO (21:55)
[2020-11-15] MEDS: Morphine Sulfate 2 MG/ML CARTRIDGE IM (21:56)
[2020-11-15] MEDS: Morphine Sulfate 4 MG/ML CARTRIDGE IM (21:57)
[2020-11-15] MEDS: Lidocaine 4 % Patch ADH..PATCH 2 PATCH TRANSDERMA (21:58)
[2020-11-15 22:00] VITALS: BP 116/75; PULSE 56; RESP 16; O2SAT 99
[2020-11-15 22:22] VITALS: BP 111/76; PULSE 60; RESP 16; O2SAT 99
== END 2020-11-15 22:30 | disposition home or self-care (01) ==
PROVIDERS: Emergency Provider Emergency Medicine; PCP Student in an Organized Health Care Education/Training Program
DX: S33.8XXA Sprain of other parts of lumbar spine and pelvis, initial encounter (principal); M79.7 Fibromyalgia; W10.9XXA Fall (on) (from) unspecified stairs and steps, initial encounter; Y93.9 Activity, unspecified; Y92.009 Unspecified place in unspecified non-institutional (private) residence as the place of occurrence of the external cause; Y99.9 Unspecified external cause status; F17.210 Nicotine dependence, cigarettes, uncomplicated; Z71.6 Tobacco abuse counseling; Z79.899 Other long term (current) drug therapy
CPT/HCPCS: 72100; 72220; 96372; 99284; J2270

== ENCOUNTER 2020-11-29 13:42 | Outpatient (REF) | payer MEDICARE, MEDICAID, SELFPAY ==
[2020-11-29 14:12] LABS: COVID-19 Test Negative (Negative); IDNOW Serial# 55D5AD1C
== END 2020-11-29 13:43 | disposition home or self-care (01) ==
LOC: HO.LAB 13:42
PROVIDERS: Visit Provider Internal Medicine
DX: Z20.822 Contact with and (suspected) exposure to COVID-19 (principal)
CPT/HCPCS: 36415; 87635; C9803

== ENCOUNTER 2020-12-10 06:06 | Outpatient (REF) | payer MEDICARE, MEDICAID, SELFPAY | END 2020-12-10 06:07 | disposition home or self-care (01) | LOC: HO.RADIR 06:06 | PROVIDERS: Visit Provider Anesthesiology | DX: Z13.89 Encounter for screening for other disorder (principal) ==

== ENCOUNTER 2020-12-19 14:40 | Emergency (ER) | payer MEDICARE, MEDICAID, SELFPAY ==
[2020-12-19 15:28] VITALS: BP 102/78; PULSE 105; RESP 20; TEMP 37.2; O2SAT 100; BMI 27.8
--- NOTE | 2020-12-19 16:04 | ED_ITS ---
HPI - URI/Sore Throat General Chief Complaint: Upper Respiratory Symptoms Stated Complaint: COVID SYMPTONS Time Seen by Provider: 12/19/20 16:04 Source: patient Mode of arrival: ambulatory Limitations: no limitations History of Present Illness HPI Narrative: cough, congestion, rhinorrhea. patient concerned that she has COVID. She has a young child at home and had the KRAIG vaccine MD elicited complaint: cough Onset (ago): day(s) Consistency: constant Severity: mild Description of mucous: watery Exacerbating factors: nothing Relieving factors: nothing Associated symptoms: denies other symptoms Related Data Home Medications Medication Instructions Recorded Confirmed amitriptyline 50 mg tablet 50 mg PO BEDTIME 08/09/20 11/01/20 azithromycin 250 mg tablet mg PO DIRECTED 08/09/20 08/29/20 cyclobenzaprine 10 mg tablet 10 mg PO TID 08/09/20 11/01/20 diazepam 5 mg tablet 5 mg PO TID PRN 08/09/20 08/29/20 famotidine 20 mg tablet 20 mg PO BEDTIME 08/09/20 08/29/20 fluticasone propionate 50 2 spray INTRANASAL DAILY 08/09/20 11/01/20 mcg/actuation nasal spray,suspension hydroxyzine HCl 50 mg tablet 50 mg PO TID 08/09/20 08/29/20 ibuprofen 600 mg tablet 600 mg PO TID 08/09/20 08/29/20 ketorolac 10 mg tablet 10 mg PO Q6H PRN 08/09/20 08/29/20 loratadine 10 mg tablet 10 mg PO DAILY 08/09/20 11/01/20 meloxicam 7.5 mg tablet mg PO 08/09/20 11/01/20 naproxen 500 mg tablet 500 mg PO Q12H PRN 08/09/20 08/29/20 paroxetine HCl 40 mg tablet 40 mg PO DAILY 08/09/20 11/01/20 ranitidine HCl 150 mg tablet mg PO 08/09/20 08/29/20 sennosides 8.6 mg-docusate sodium 1 tab PO DAILY 08/09/20 08/29/20 50 mg tablet Previous Rx's Medication Instructions Recorded omeprazole 20 mg capsule,delayed 20 mg PO BID 30 Days #60 cap 07/25/20 release prednisone 40 mg PO DAILY #10 tab 11/05/20 tramadol 50 mg PO TID PRN 3 Days #9 tab 11/05/20 cyclobenzaprine 10 mg PO TID PRN #14 tab 11/15/20 lidocaine 2 patch TOPICAL DAILY PRN #30 ea 11/15/20 oxycodone 5 mg PO Q6H PRN #14 tab 11/15/20 loratadine-pseudoephedrine 1 tab PO DAILY #20 tab 12/19/20 [Claritin-D 24 Hour] naproxen [Naprosyn] 500 mg PO BID #20 tab 12/19/20 Allergies Allergy/AdvReac Type Severity Reaction Status Date / Time No Known Allergies Allergy Verified 11/15/20 20:17 [No Known Allergies*] Review of Systems Constitutional: Constitutional: Reports no additional constitutional complaints Eyes: Eyes: Reports no additional eye complaints ENT: Denies dizziness Cardiovascular: Cardiovascular: Reports no additional cardiovascular com plaints Respiratory: Respiratory: Reports as per HPI Gastrointestinal: Gastrointestinal: Reports no additional gastrointestinal complaints Genitourinary: Genitourinary: Reports no additional female genitourinary complaints Musculoskeletal: Musculoskeletal: Reports no additional musculoskeletal complaints Integumentary/Breasts: Skin/Breast: Denies rash Neurologic: Reports system reviewed and no additional complaints, except as documented, Denies dizziness and Denies Sensory deficit (Neuro) Psychiatric: Psychiatric: Denies anxiety PMFSH Past Medical History Medical History Anxiety Cyst of left breast (~2008) Herniated intervertebral disc Surgical History H/O section H/O left breast biopsy (10/27/11) History of esophagogastroduodenoscopy (EGD) Hx of colonoscopy Hx of laparoscopy S/P breast biopsy Status post appendectomy Thyroid nodule Family History Family History Father Suicide Mother Fibrous breast lumps H/O thyroidectomy Diabetes Brother Collapse of both lungs Kidney problem H/O thyroidectomy Son Family history of Klinefelter syndrome Maternal Grandmother Stomach cancer Maternal Grandfather Lung cancer Family/Other Breast cancer Depression Maternal Aunt Ovarian cancer Paternal Uncle History of open heart surgery Maternal Uncle Suicide Social History Social History Household Members: Children Alcohol intake: current Alcohol intake frequency: holidays/special occasions only Smoking Status: Current every day smoker Packs Per Day: 0.75 Cigarettes Per Day: 15.0 Advance Directives: No Advance Directives Information Provided: No Physical Exam Vital Signs: Vital Signs: Last Vital Signs Temp 99.0 F 12/19/20 15:28 Pulse 105 H 12/19/20 15:28 Resp 20 12/19/20 15:28 BP 102/78 12/19/20 15:28 Pulse Ox 100 12/19/20 15:28 Body Mass Index 27.8 Const: General: healthy appearing Nutritional Appearance: average body habitus Orientation/consciousness: oriented to person and patient oriented x3 Limitations: no limitations HENMT: Head: Yes normal to inspection Ears: external ears normal General nose exam: Normal external nose present Mouth: Normal oral and palatal mucosa present and oropharynx normal Throat: Yes posterior oropharynx normal Eyes: General: appearance normal, both eyes and all related structures Neck: Other: supple, left trapezius tenderness Neck: Yes normal visual inspection Chest: Chest palpation & inspection: normal inspection of the chest Resp: Auscultation: clear to auscultation bilaterally Cardio: Jugular venous distension: no JVD Rate: regular rate Rhythm: regular rhythm Heart sounds: S1 normal heart sound present and S2 normal heart sound present GI: Inspection: Yes normal to inspection Palpation (GI): Soft to palpation, nontender and No hepatosplenomegaly present Auscultation: normal bowel sounds : General: Yes no CVA tenderness Back/Spine/Pelvis: Back: no CVA tenderness Skin: General skin exam: no rashes or lesions noted Neuro: General: oriented to person and patient oriented x3 Cranial nerves: Yes CN's II-XII intact bilaterally Motor exam (neuro): 5/5 motor strength present throughout Sensory Exam: No Sensory deficit (Neuro) Extrem: General: Yes normal to inspection Psych: Appearance: grossly normal Course Course Course Narrative: Most likely allergic rhinnitis, will treat with claritin and obtain rapid COVIDj. Will treat left trapezius pain with NSAIDs Discharge Plan Discharge Clinical Impression: Viral infection Sinusitis Qualifiers: Sinusitis location: frontal Chronicity: acute Recurrence: not specified as recurrent Qualified Code(s): J01.10 - Acute frontal sinusitis, unspecified Patient Disposition: Home, Self-Care Instructions: Sinusitis (ED), Rhinosinusitis (ED) Prescriptions: New naproxen [Naprosyn] 500 mg tablet 500 mg PO BID Qty: 20 RF: 0 loratadine-pseudoephedrine [Claritin-D 24 Hour] 10-240 mg tablet extended rel ease 24 hr 1 tab PO DAILY Qty: 20 RF: 0 No Action omeprazole 20 mg capsule,delayed release(DR/EC) 20 mg PO BID 30 Days Qty: 60 RF: 3 tramadol 50 mg tablet 50 mg PO TID PRN (Reason: pain) 3 Days Qty: 9 RF: 0 prednisone 20 mg tablet 40 mg PO DAILY Qty: 10 RF: 0 oxycodone 5 mg tablet 5 mg PO Q6H PRN (Reason: pain) Qty: 14 RF: 0 lidocaine 5 % adhesive patch,medicated 2 patch topical DAILY PRN (Reason: Lower back pain) Qty: 30 RF: 0 cyclobenzaprine 10 mg tablet 10 mg PO TID PRN (Reason: muscle spasm) Qty: 14 RF: 0 amitriptyline 50 mg tablet 50 mg PO BEDTIME RF: 0 ranitidine HCl 150 mg tablet PO RF: 0 meloxicam 7.5 mg tablet PO RF: 0 paroxetine HCl 40 mg tablet 40 mg PO DAILY RF: 0 fluticasone propionate 50 mcg/actuation spray,suspension 2 spray intranasal DAILY RF: 0 azithromycin 250 mg tablet PO DIRECTED RF: 0 loratadine 10 mg tablet 10 mg PO DAILY RF: 0 hydroxyzine HCl 50 mg tablet 50 mg PO TID RF: 0 diazepam 5 mg tablet 5 mg PO TID PRNRF: 0 ibuprofen 600 mg tablet 600 mg PO TID RF: 0 naproxen 500 mg tablet 500 mg PO Q12H PRN (Reason: pain) RF: 0 famotidine 20 mg tablet 20 mg PO BEDTIME RF: 0 ketorolac 10 mg tablet 10 mg PO Q6H PRNRF: 0 cyclobenzaprine 10 mg tablet 10 mg PO TID RF: 0 sennosides-docusate sodium 8.6-50 mg tablet 1 tab PO DAILY RF: 0 Referrals: Peace Gao MD [Primary Care Provider] - 1 week
[2020-12-19 16:58] LABS: COVID-19 Test Negative (Negative)
--- NOTE | 2020-12-19 16:58 | PC.NURSE ---
covid swab obtained, pt refused ibuprofen
== END 2020-12-19 16:59 | disposition home or self-care (01) ==
PROVIDERS: Emergency Provider Emergency Medicine; PCP Student in an Organized Health Care Education/Training Program
DX: B34.9 Viral infection, unspecified (principal); J01.10 Acute frontal sinusitis, unspecified; F17.210 Nicotine dependence, cigarettes, uncomplicated; Z79.899 Other long term (current) drug therapy; Z20.822 Contact with and (suspected) exposure to COVID-19; Z71.6 Tobacco abuse counseling
CPT/HCPCS: 36415; 87635; 99283

== ENCOUNTER 2020-12-31 06:19 | Outpatient (REF) | payer MEDICARE, MEDICAID, SELFPAY ==
--- NOTE | ~2020-12-31 | FL_ITS ---
EXAMINATION: XR FLUOROSCOPY WITH IMAGES CLINICAL INFORMATION: Sacrococcygeal disorders. COMPARISON: None. TECHNIQUE: Fluoroscopy performed by Dr. Melquiades Malone. Fluoroscopy time: 0.2 minutes DAP: 1.66 Gycm2 Images: 1 FINDINGS: There is solitary needle and contrast seen in the right inferior SI joint vicinity.. No bony bony abnormality seen. The soft tissues are normal. FL/FL guidance in treatment room IMPRESSION: Fluoroscopy was provided to Dr. Arnett during intervention.
== END 2020-12-31 06:20 | disposition home or self-care (01) ==
LOC: HO.RADIR 06:19
PROVIDERS: Visit Provider Anesthesiology
DX: M53.3 Sacrococcygeal disorders, not elsewhere classified (principal); M79.7 Fibromyalgia
CPT/HCPCS: 27096; J3300; Q9967

== ENCOUNTER → 2021-02-04 11:32 | Outpatient (BNVA) | payer MEDICARE, MEDICAID, SELFPAY | PROVIDERS: PCP Student in an Organized Health Care Education/Training Program; Visit Provider Nurse Practitioner Family | DX: M53.3 Sacrococcygeal disorders, not elsewhere classified (principal); M79.7 Fibromyalgia | CPT/HCPCS: 99212 ==

== ENCOUNTER 2021-03-21 12:33 | Outpatient (REF) | payer MEDICARE, MEDICAID, SELFPAY ==
--- NOTE | ~2021-03-21 | MM_ITS ---
EXAMINATION: MM SCREENING DIGITAL BREAST TOMOSYNTHESIS, BILATERAL CLINICAL INFORMATION: Screening. Asymptomatic. The lifetime risk of breast cancer based on the Tyrer-Cuzick Model is 7%. COMPARISON: Mammography: 03/15/2020, 03/09/2019, 02/09/2018 TECHNIQUE: Digital breast tomosynthesis is performed in both the craniocaudal and mediolateral oblique views along with computer-aided detection (CAD). Synthesized 2D images are generated from the tomosynthesis. Additional left MLO view is provided. FINDINGS: There are scattered areas of fibroglandular density (ACR BI-RADS breast composition Category b). Breast tissue composition borders on heterogeneously dense. The pattern is similar to previous exam. There is no developing density or interval mass or architectural abnormality. Biopsy clip marker again noted central posterior 12:00 left breast and posterior upper outer right breast. There are some scattered fine calcifications again seen. The axilla and skin contours are unremarkable. No significant changes. MM/MM tomosynthesis screening BI IMPRESSION: No mammographic evidence of malignancy. ASSESSMENT: BI-RADS 2: Benign RECOMMENDATION: Routine annual mammography screening. This patient's information was entered into a reminder system with a target due date for their next mammogram.
== END 2021-03-21 12:34 | disposition home or self-care (01) ==
LOC: HO.MAMMO 12:33
PROVIDERS: Visit Provider Student in an Organized Health Care Education/Training Program
DX: Z12.31 Encounter for screening mammogram for malignant neoplasm of breast (principal)
CPT/HCPCS: 77063; 77067

== ENCOUNTER 2021-04-02 12:12 | Emergency (ER) | payer MEDICARE, MEDICAID, SELFPAY ==
[2021-04-02 12:37] VITALS: BP 116/69; PULSE 72; RESP 18; TEMP 36.8; O2SAT 98; BMI 28.1
== END 2021-04-02 15:55 | disposition left against medical advice (07) ==
PROVIDERS: Emergency Provider Emergency Medicine; PCP Student in an Organized Health Care Education/Training Program
DX: M54.9 Dorsalgia, unspecified (principal)
CPT/HCPCS: 99281; 99282

== ENCOUNTER 2021-04-08 15:23 | Emergency (ER) | payer MEDICARE, MEDICAID, SELFPAY ==
--- NOTE | ~2021-04-08 | XR_ITS ---
EXAMINATION: XR CERVICAL SPINE CLINICAL INFORMATION: Nontraumatic neck pain COMPARISON: CT of the cervical spine 11/05/2020 TECHNIQUE: 3 views of the cervical spine were obtained. FINDINGS: There are no prevertebral soft tissue or bony abnormalities demonstrated. No compression fractures or subluxations are identified. Alignment is maintained at the atlanto-axial articulation. Mild narrowing of the disc spaces at C5-C6, remainder of the disc spaces are preserved. Small marginal osteophytes in the midthoracic spine.The prevertebral soft tissues are normal. XR/XR cervical spine 2V IMPRESSION: Mild degenerative changes in the cervical spine.
[2021-04-08 16:30] VITALS: BP 98/70; PULSE 67; RESP 18; TEMP 37.1; O2SAT 99; BMI 28.0
[2021-04-08 18:41] LABS: MANUAL DIFF FLAG NO
[2021-04-08 18:56] LABS: Basophils Percent Auto 0.2 % (0-2); Eosinophils Absolute Auto 0.1 X10*3/uL (0.0-0.4); Eosinophils Percent Auto 1.3 % (0-4); Hematocrit 42.8 % (37-47); Hemoglobin 13.4 g/dl (12.0-16.0); Imm Gran Abs Auto 0.02 X10*3/uL (0.00-0.03); Imm Gran Pct Auto 0.3 % (0.0-0.4); Lymphocytes Absolute Auto 1.9 X10*3/uL (1.2-4.9); Lymphocytes Percent Auto 30.9 % (20-40); Mean Corpuscular HGB Conc 31.3 g/dl (31.0-35.0); Mean Corpuscular Hemoglobin 28.9 pg (27.0-33.0); Mean Corpuscular Volume 92.2 fL (80-98); Mean Platelet Volume 11.5 fL (9.4-12.3); Monocytes Absolute Auto 0.3 X10*3/uL (0.1-1.2); Monocytes Percent Auto 5.2 % (2-11); Neutrophils Absolute Auto 3.8 X10*3/uL (2.0-8.3); Neutrophils Percent Auto 62.1 % (45-73); Platelet Count 239 X10*3/uL (160-400); Red Blood Count 4.64 X10*6/uL (4.20-5.50); Red Cell Distribution Width 13.2 % (11.0-16.0); White Blood Count 6.2 X10*3/uL (4.8-10.8)
[2021-04-08 19:12] LABS: Alanine Aminotransferase 17 U/L (0-31); Albumin Level 4.7 g/dL (3.5-5.0); Alkaline Phosphatase 110 U/L (39-117); Anion Gap 12 (12-20); Aspartate Amino Transferase 15 U/L (5-31); Bilirubin Total 0.4 mg/dL (0.0-1.0); Blood Urea Nitrogen 11 mg/dL (9-16); Calcium 10.8 mg/dL (8.4-10.2); Carbon Dioxide 24 mmol/L (22-29); Chloride 109 mmol/L (96-108); Creatinine Clr Calc Pharmacy 62.6; Estimated Glomerular Filt Rate > 60; Glucose Random 113 mg/dL (60-115); Sodium 141 mmol/L (135-145); Total Protein 7.2 g/dL (6.5-8.0)
--- NOTE | 2021-04-08 20:14 | ED_ITS ---
HPI - Neck Pain/Injury General Chief Complaint: Neck Pain/Injury Stated Complaint: neck pain Time Seen by Provider: 04/08/21 20:14 Source: patient Mode of arrival: ambulatory Limitations: no limitations History of Present Illness HPI Narrative: 50 y/o female with history of fibromyalgia on amitripyline, anxiety, asthma, SI joint pain who presents to the ER with worsening non- traumatic acute on chronic neck pain. She reports the pain is so bad at times it feels like it paralyzes her. She feels like her amitripyline makes it worse. She states the pain is in the middle of her neck and on both sides of her lower n radha. All worse with movement. She also has diffuse back pains that started with the neck pain. She has no fever, vision changes, arm pain, weakness, or numbness. She admits to being incredibly anxious and upset with her doctor's management of her problems. MD complaint: neck pain Onset (ago): day(s) (3) Radiation: right lateral, left lateral, occiput, right shoulder, left shoulder and upper back Severity: severe Severity scale (1-10): 10 Quality: burning, aching, spasming and throbbing Duration: constant Relieving factors: none Exacerbating factors: movement of neck Context: unknown Associated symptoms: headache Treatments prior to arrival: none Related Data Home Medications Medication Instructions Recorded Confirmed famotidine 20 mg tablet 20 mg PO BEDTIME 08/09/20 02/04/21 fluticasone propionate 50 2 spray INTRANASAL DAILY 08/09/20 02/04/21 mcg/actuation nasal spray,suspension hydroxyzine HCl 50 mg tablet 50 mg PO TID 08/09/20 02/04/21 loratadine 10 mg tablet 10 mg PO DAILY 08/09/20 02/04/21 naproxen 500 mg tablet 500 mg PO Q12H PRN 08/09/20 02/04/21 paroxetine HCl 40 mg tablet 40 mg PO DAILY 08/09/20 02/04/21 Previous Rx's Medication Instructions Recorded omeprazole 20 mg capsule,delayed 20 mg PO BID 30 Days #60 cap 07/25/20 release tramadol 50 mg tablet 50 mg PO TID PRN 3 Days #9 tab 11/05/20 cyclobenzaprine 10 mg tablet 10 mg PO TID PRN #14 tab 11/15/20 oxycodone 5 mg tablet 5 mg PO Q6H PRN #14 tab 11/15/20 lorazepam 1 mg tablet 1 mg PO ONCE PRN #2 tab 03/12/21 cyclobenzaprine 10 mg tablet 10 mg PO TID PRN #12 tab 04/08/21 lidocaine 5 % topical patch 1 patch TOPICAL DAILY #15 ea 04/08/21 (Lidoderm) naproxen 500 mg tablet 500 mg PO BID PRN #20 tab 04/08/21 Allergies Allergy/AdvReac Type Severity Reaction Status Date / Time ibuprofen AdvReac Severe GI upset Verified 04/08/21 16:30 Review of Systems Constitutional: Constitutional: Denies chills, Denies fever(s) and Reports headache(s) Eyes: Eyes: Reports no additional eye complaints ENT: Denies dysphagia, Denies vertigo, Denies dizziness, Reports headache(s), Denies mouth pain, Denies neck mass, Reports neck pain, Denies sore throat, Denies throat swelling and Denies tongue swelling Cardiovascular: Cardiovascular: Denies chest pain and Denies dyspnea Respiratory: Respiratory: Denies cough and Denies dyspnea Gastrointestinal: Gastrointestinal: Denies abdominal pain and Denies dysphagia Musculoskeletal: Musculoskeletal: Reports back pain, Reports myalgias, Reports arthralgias and Reports neck pain Integumentary/Breasts: Skin/Breast: Denies rash Neurologic: Denies vertigo, Denies dizziness and Reports headache(s) Psychiatric: Psychiatric: Reports anxiety, Reports depression, Reports hopelessness and Reports panic attacks Allergic/Immunologic: Allergic/Immunologic: Denies throat swelling and Denies tongue swelling PMFSH Past Medical History Medical History Anxiety Cyst of left breast (~2008) Herniated intervertebral disc Surgical History H/O section H/O left breast biopsy (10/27/11) History of esophagogastroduodenoscopy (EGD) Hx of colonoscopy Hx of laparoscopy S/P breast biopsy Status post appendectomy Thyroid nodule Family History Family History Father Suicide Mother Fibrous breast lumps H/O thyroidectomy Diabetes Brother Collapse of both lungs Kidney problem H/O thyroidectomy Son Family history of Klinefelter syndrome Maternal Grandmother Stomach cancer Maternal Grandfather Lung cancer Family/Other Breast cancer Depression Maternal Aunt Ovarian cancer Paternal Uncle History of open heart surgery Maternal Uncle Suicide Social History Social History Household Members: Children Household Members Other:: 1 daughter, 2 sons Alcohol intake: current Alcohol intake frequency: holidays/special occasions only Cigarette Packs Per Day: 0.75 Cigarettes Per Day: 15.0 Advance Directives: No Advance Directives Information Provided: Yes Physical Exam Vital Signs: Vital Signs: Last Vital Signs Temp 98.7 F 04/08/21 16:30 Pulse 51 04/08/21 21:11 Resp 128 H 04/08/21 21:11 BP 108/72 04/08/21 21:11 Pulse Ox 100 04/08/21 21:11 Body Mass Index 28.0 Const: General: cooperative, no acute distress, anxious and tired appearing Nutritional Appearance: average body habitus Orientation/consciousness: patient oriented x3 Limitations: no limitations HENMT: Head: Yes normal to inspection, Yes normocephalic and Yes atraumatic Ears: hearing grossly normal bilaterally and external ears normal General nose exam: Normal external nose present and Normal nares present Face and sinus: Yes normal facial exam and Yes face symmetric Mouth: Normal oral and palatal mucosa present, lip normal and tongue normal Throat: Yes posterior oropharynx normal, Yes tonsils normal and Yes uvula midline Eyes: General: appearance normal, both eyes and all related structures Neck: Neck: Yes normal visual inspection, Yes no meningeal signs, Yes trachea midline, Yes supple and Yes tender (diffuse tenderness of the soft tissues ) Thyroid: Thyroid normal Lymphatic: no lymphadenopathy noted Chest: Chest palpation & inspection: normal inspection of the chest and normal palpation of entire chest wall Resp: Effort & Inspection: normal respiratory effort and able to speak in complete sentences Auscultation: clear to auscultation bilaterally Cardio: Rate: regular rate Rhythm: regular rhythm Heart sounds: S1 no rmal heart sound present and S2 normal heart sound present Back/Spine/Pelvis: Cervical Spine: normal cervical lordosis, cervical muscular tenderness, pain with cervical ROM and cervical spasm Thoracic/Lumbar Spine: thoracic and lumbar spine normal to inspection and paraspinal muscle tenderness bilaterally in the upper thoracic, in the mid thoracic, in the lower thoracic, in the upper lumbar, in the mid lumbar and in the lower lumbar Skin: General skin exam: no rashes or lesions noted Neuro: General: patient oriented x3, gait normal, tone normal, moves all extremities and no meningeal signs Extrem: General: Yes normal to inspection, Yes full ROM and Yes no pedal edema Psych: Appearance: grossly normal Mental Status: mental status grossly normal Speech and movement: Normal speech and movement present Affect: Sad affect present and Anxious affect present Attitude: cooperative Course Course Course Narrative: 50 y/o female with history of fibromylagia presenting wtih nontraumatic acute on chronic neck pain. Her lab workup is remarkable. Her XR showing mild degenerative changes. No radicular pains. She has a nonfocal neuro exam. She has diffuse tenderness, specifically in the trigger points of fibromyalgia. Suspect her pain is related to exacernbation of this. She is tearful and anxiety. Will give a dose of Valium for muscle relaxation and anxiety as well as IM toradol and reasses. Reevaluation(s) Reevaluation #1: Patient is feeling better and asking to be discharged home. Stable for d/c with plan for outpatient follow up, brief course of muscle relaxer and NSAID. MDM - Neck Pain/Injury Lab Data Result diagrams: 04/08/21 18:32 04/08/21 18:32 Labs: Lab Results 04/08/21 04/08/21 Range/Units 18:32 18:32 WBC 6.2 (4.8-10.8) X10*3/uL RBC 4.64 (4.20-5.50) X10*6/uL Hgb 13.4 (12.0-16.0) g/dl Hct 42.8 (37-47) % MCV 92.2 (80-98) fL MCH 28.9 (27.0-33.0) pg MCHC 31.3 (31.0-35.0) g/dl RDW 13.2 (11.0-16.0) % Plt Count 239 (160-400) X10*3/uL MPV 11.5 (9.4-12.3) fL Immature Gran % (Auto) 0.3 (0.0-0.4) % Neut % (Auto) 62.1 (45-73) % Lymph % (Auto) 30.9 (20-40) % [place] % (Auto) 5.2 (2-11) % Eos % (Auto) 1.3 (0-4) % Baso % (Auto) 0.2 (0-2) % Lymph # (Auto) 1.9 (1.2-4.9) X10*3/uL [place] # (Auto) 0.3 (0.1-1.2) X10*3/uL Eos # (Auto) 0.1 (0.0-0.4) X10*3/uL Baso # (Auto) 0.0 (0.0-0.2) X10*3/uL Abs Immat Gran (auto) 0.02 (0.00-0.03) X10*3/uL Absolute Neuts (auto) 3.8 (2.0-8.3) X10*3/uL Absolute Nucleated RBC 0.000 (0.0-0.012) X10*3/uL Nucleated RBC % (auto) 0.0 (0.0-0.2) /100WBC Sodium 141 (135-145) mmol/L Potassium 4.0 (3.3-5.1) mmol/L Chloride 109 H (96-108) mmol/L Carbon Dioxide 24 (22-29) mmol/L Anion Gap 12 (12-20) BUN 11 (9-16) mg/dL Creatinine 0.97 (0.5-1.4) mg/dL Estim Creat Clear Calc 62.6 Estimated GFR > 60 Random Glucose 113 (60-115) mg/dL Calcium 10.8 H (8.4-10.2) mg/dL Total Bilirubin 0.4 (0.0-1.0) mg/dL AST 15 (5-31) U/L ALT 17 (0-31) U/L Alkaline Phosphatase 110 (39-117) U/L Total Protein 7.2 (6.5-8.0) g/dL Albumin 4.7 (3.5-5.0) g/dL Discharge Plan Discharge Clinical Impression: Fibromyalgia Patient Disposition: Home, Self-Care Instructions: Fibromyalgia (ED), Trigger Point Pain (ED) Additional Instructions: Your labs today were normal. Your x-ray showed some mild degenerative changes in your neck. Rest. No strenuous activity. Use ice several times per day for 20 minutes at a time for the next 48 hours and then change to heat. Take medications as prescribed to help with pain and discomfort. Follow up with your Primary Care Doctor this week. If your pain worsens, if you develop new numbness, tingling, weakness, loss of function or any other concerning symptoms call 911 or come back to the ER right away for evaluation. Prescriptions: New cyclobenzaprine 10 mg tablet 10 mg PO TID PRN (Reason: muscle spasm) Qty: 12 RF: 0 lidocaine [Lidoderm] 5 % adhesive patch,medicated 1 patch topical DAILY Qty: 15 RF: 0 naproxen 500 mg tablet 500 mg PO BID PRN (Reason: pain) Qty: 20 RF: 0 No Action omeprazole 20 mg capsule,delayed release(DR/EC) 20 mg PO BID 30 Days Qty: 60 RF: 3 lorazepam 1 mg tablet 1 mg PO ONCE PRN (Reason: painful procedure) Qty: 2 RF: 0 tramadol 50 mg tablet 50 mg PO TID PRN (Reason: pain) 3 Days Qty: 9 RF: 0 oxycodone 5 mg tablet 5 mg PO Q6H PRN (Reason: pain) Qty: 14 RF: 0 cyclobenzaprine 10 mg tablet 10 mg PO TID PRN (Reason: muscle spasm) Qty: 14 RF: 0 paroxetine HCl 40 mg tablet 40 mg PO DAILY RF: 0 fluticasone propionate 50 mcg/actuation spray,suspension 2 spray intranasal DAILY RF: 0 loratadine 10 mg tablet 10 mg PO DAILY RF: 0 hydroxyzine HCl 50 mg tablet 50 mg PO TID RF: 0 naproxen 500 mg tablet 500 mg PO Q12H PRN (Reason: pain) RF: 0 famotidine 20 mg tablet 20 mg PO BEDTIME RF: 0 Referrals: Peace Gao MD [Primary Care Provider] - 2 days Interventions: ED Discharge Assessment Last Done: 04/08/21 21:58 Discharge Date/Time: 04/08/21 21:59
[2021-04-08 21:11] VITALS: BP 108/72; PULSE 51; RESP 128; O2SAT 100
[2021-04-08] MEDS: diazePAM 5 MG TABLET PO (21:13)
[2021-04-08] MEDS: Ketorolac Tromethamine 15 MG/ML VIAL 30 MG IM (21:13)
[2021-04-08] MEDS: Lidocaine 4 % Patch ADH..PATCH 1 PATCH TRANSDERMA (21:13)
== END 2021-04-08 21:59 | disposition home or self-care (01) ==
PROVIDERS: Emergency Provider Emergency Medicine; PCP Student in an Organized Health Care Education/Training Program
DX: M79.7 Fibromyalgia (principal); F17.210 Nicotine dependence, cigarettes, uncomplicated
CPT/HCPCS: 36415; 72040; 80053; 85025; 96372; 99284; J1885

== ENCOUNTER 2021-04-21 20:04 | Emergency (ER) | payer MEDICARE, MEDICAID, SELFPAY ==
--- NOTE | ~2021-04-21 | XR_ITS ---
EXAMINATION: XR CHEST CLINICAL INFORMATION: Chest pain COMPARISON: Chest x-ray May 16, 2020 TECHNIQUE: Frontal view of the chest was obtained. FINDINGS: Chronic silhouette is normal in size. The lungs are well aerated. There is no lobar consolidation. No pleural effusion or pneumothorax. No gross osseous abnormality. XR/XR chest 1V IMPRESSION: Stable examination demonstrating no acute pulmonary pathology.
[2021-04-21 20:45] VITALS: BP 113/77; PULSE 66; RESP 15; TEMP 36.1; O2SAT 99; BMI 28.0
--- NOTE | 2021-04-21 21:46 | ECG_ITS ---
Test Reason : CHEST PAIN Blood Pressure : / mmHG Vent. Rate : 068 BPM Atrial Rate : 068 BPM P-R Int : 162 ms QRS Dur : 092 ms QT Int : 394 ms P-R-T Axes : 041 -34 033 degrees QTc Int : 418 ms Normal sinus rhythm Left axis deviation Low voltage QRS Incomplete right bundle branch block Abnormal ECG When compared with ECG of 05-NOV-2020 11:52, No significant change was found Referred By: Ellis Foley Electronically Signed By:JESSICA STARKS
--- NOTE | 2021-04-21 21:50 | ED_ITS ---
HPI - Chest Pain General Chief Complaint: Chest Pain Stated Complaint: Chest pain Time Seen by Provider: 04/21/21 21:50 Source: patient Mode of arrival: ambulatory Limitations: no limitations History of Present Illness HPI narrative: Patient history of anxiety depression recurrent chest pain been here multiple times for chest pain this time she comes here for mid chest and left-sided chest pain sharp in character onset was about an hour prior to arrival with nausea no vomiting no shortness of breath no cough chest pain get worse on movement and taking a deep breath. Patient denies any anxiety or stress lately Related Data Home Medications Medication Instructions Recorded Confirmed famotidine 20 mg tablet 20 mg PO BEDTIME 08/09/20 02/04/21 fluticasone propionate 50 2 spray INTRANASAL DAILY 08/09/20 02/04/21 mcg/actuation nasal spray,suspension hydroxyzine HCl 50 mg tablet 50 mg PO TID 08/09/20 02/04/21 loratadine 10 mg tablet 10 mg PO DAILY 08/09/20 02/04/21 naproxen 500 mg tablet 500 mg PO Q12H PRN 08/09/20 02/04/21 paroxetine HCl 40 mg tablet 40 mg PO DAILY 08/09/20 02/04/21 Previous Rx's Medication Instructions Recorded omeprazole 20 mg capsule,delayed 20 mg PO BID 30 Days #60 cap 07/25/20 release tramadol 50 mg tablet 50 mg PO TID PRN 3 Days #9 tab 11/05/20 cyclobenzaprine 10 mg tablet 10 mg PO TID PRN #14 tab 11/15/20 oxycodone 5 mg tablet 5 mg PO Q6H PRN #14 tab 11/15/20 lorazepam 1 mg tablet 1 mg PO ONCE PRN #2 tab 03/12/21 cyclobenzaprine 10 mg tablet 10 mg PO TID PRN #12 tab 04/08/21 lidocaine 5 % topical patch 1 patch TOPICAL DAILY #15 ea 04/08/21 (Lidoderm) naproxen 500 mg tablet 500 mg PO BID PRN #20 tab 04/08/21 Allergies Allergy/AdvReac Type Severity Reaction Status Date / Time ibuprofen AdvReac Severe GI upset Verified 04/08/21 16:30 Review of Systems Review of Systems: Yes all other systems are reviewed and are negative PMFSH Past Medical History Medical History Anxiety Cyst of left breast (~2008) Herniated intervertebral disc Surgical History H/O section H/O left breast biopsy (10/27/11) History of esophagogastroduodenoscopy (EGD) Hx of colonoscopy Hx of laparoscopy S/P breast biopsy Status post appendectomy Thyroid nodule Family History Family History Father Suicide Mother Fibrous breast lumps H/O thyroidectomy Diabetes Brother Collapse of both lungs Kidney problem H/O thyroidectomy Son Family history of Klinefelter syndrome Maternal Grandmother Stomach cancer Maternal Grandfather Lung cancer Family/Other Breast cancer Depression Maternal Aunt Ovarian cancer Paternal Uncle History of open heart surgery Maternal Uncle Suicide Social History Social History Household Members: Children Household Members Other:: 1 daughter, 2 sons Alcohol intake: current Alcohol intake frequency: holidays/special occasions only Cigarette Packs Per Day: 0.75 Cigarettes Per Day: 15.0 Advance Directives: No Advance Directives Information Provided: No Patient : No Physical Exam Vital Signs: Vital Signs: Last Vital Signs Temp 97 F 04/21/21 20:45 Pulse 52 04/21/21 21:54 Resp 16 04/21/21 21:54 BP 124/80 04/21/21 21:54 Pulse Ox 98 04/21/21 21:54 Body Mass Index 28.0 Appearance: Alert. Oriented X3. No acute distress. Eyes: No pallor or icterus ENT: Pharynx normal. Oral Mucosa moist Neck: Normal inspection. Neck supple. CVS: Normal heart rate and rhythm. Pulses normal. Respiratory: No respiratory distress. Equal air entry bilateral, no wheezing/rales/rhonchi costochondral tenderness on the left side Abdomen: Soft and nontender. Bowel sounds are present, no mass palpable, no CVA tenderness Skin: Skin warm and dry. Normal skin color. Normal skin turgor. Extremities: No lower extremity edema. No calf tenderness Neuro: Oriented X 3. No motor deficit. No sensory deficit.No cerebellar signs , cranial nerves II-XII intact MDM - Chest Pain MDM Narrative Medical decision making narrative: Patient atypical chest pain negative troponin no acute ischemic changes with similar pain in the past likely musculoskeletal discharge patient home Lab Data Attestation: I reviewed the patient's lab results. Result diagrams: 04/21/21 21:54 04/21/21 21:54 Labs: Lab Results 04/21/21 04/21/21 04/21/21 Range/Units 21:54 21:54 21:54 WBC 7.0 (4.8-10.8) X10*3/uL RBC 4.39 (4.20-5.50) X10*6/uL Hgb 12.1 (12.0-16.0) g/dl Hct 39.6 (37-47) % MCV 90.2 (80-98) fL MCH 27.6 (27.0-33.0) pg MCHC 30.6 L (31.0-35.0) g/dl RDW 13.1 (11.0-16.0) % Plt Count 224 (160-400) X10*3/uL MPV 11.4 (9.4-12.3) fL Immature Gran % (Auto) 0.3 (0.0-0.4) % Neut % (Auto) 56.4 (45-73) % Lymph % (Auto) 35.3 (20-40) % [place] % (Auto) 6.2 (2-11) % Eos % (Auto) 1.7 (0-4) % Baso % (Auto) 0.1 (0-2) % Lymph # (Auto) 2.5 (1.2-4.9) X10*3/uL [place] # (Auto) 0.4 (0.1-1.2) X10*3/uL Eos # (Auto) 0.1 (0.0-0.4) X10*3/uL Baso # (Auto) 0.0 (0.0-0.2) X10*3/uL Abs Immat Gran (auto) 0.02 (0.00-0.03) X10*3/uL Absolute Neuts (auto) 3.9 (2.0-8.3) X10*3/uL Absolute Nucleated RBC 0.000 (0.0-0.012) X10*3/uL Nucleated RBC % (auto) 0.0 (0.0-0.2) /100WBC Sodium 140 (135-145) mmol/L Potassium 4.2 (3.3-5.1) mmol/L Chloride 110 H (96-108) mmol/L Carbon Dioxide 22 (22-29) mmol/L Anion Gap 12 (12-20) BUN 12 (9-16) mg/dL Creatinine 0.88 (0.5-1.4) mg/dL Estim Creat Clear Calc 69.0 Estimated GFR > 60 Random Glucose 95 (60-115) mg/dL Calcium 10.5 H (8.4-10.2) mg/dL Troponin I High Sens < 3.5 (<3.5-17.0) ng/L ECG Data ECG #1: Attestation: I personally reviewed and interpreted this ECG as follows: Interpretation: Normal sinus rhythm left axis deviation and incomplete right bundle-branch block heart rate 68 beats per minute no acute ischemic changes no change from previous EKGs Discharge Plan Discharge Clinical Impression: Atypical chest pain Patient Disposition: Home, Self-Care Instructions: Chest Pain (ED) Additional Instructions: The chest pain is likely from muscular skeletal follow with PCP Prescriptions: No Action omeprazole 20 mg capsule,delayed release(DR/EC) 20 mg PO BID 30 Days Qty: 60 RF: 3 lorazepam 1 mg tablet 1 mg PO ONCE PRN (Reason: painful procedure) Qty: 2 RF: 0 tramadol 50 mg tablet 50 mg PO TID PRN (Reason: pain) 3 Days Qty: 9 RF: 0 oxycodone 5 mg tablet 5 mg PO Q6H PRN (Reason: pain) Qty: 14 RF: 0 cyclobenzaprine 10 mg tablet 10 mg PO TID PRN (Reason: muscle spasm) Qty: 14 RF: 0 cyclobenzaprine 10 mg tablet 10 mg PO TID PRN (Reason: muscle spasm) Qty: 12 RF: 0 lidocaine [Lidoderm] 5 % adhesive patch,medicated 1 patch topical DAILY Qty: 15 RF: 0 naproxen 500 mg tablet 500 mg PO BID PRN (Reason: pain) Qty: 20 RF: 0 paroxetine HCl 40 mg tablet 40 mg PO DAILY RF: 0 fluticasone propionate 50 mcg/actuation spray,suspension 2 spray intranasal DAILY RF: 0 loratadine 10 mg tablet 10 mg PO DAILY RF: 0 hydroxyzine HCl 50 mg tablet 50 mg PO TID RF: 0 naproxen 500 mg tablet 500 mg PO Q12H PRN (Reason: pain) RF: 0 famotidine 20 mg tablet 20 mg PO BEDTIME RF: 0
[2021-04-21 21:54] VITALS: BP 124/80; PULSE 52; RESP 16; O2SAT 98
[2021-04-21 21:59] LABS: MANUAL DIFF FLAG NO
[2021-04-21] MEDS: Ketorolac Tromethamine 15 MG/ML VIAL IVPUSH (22:03)
[2021-04-21 22:10] LABS: Basophils Percent Auto 0.1 % (0-2); Eosinophils Absolute Auto 0.1 X10*3/uL (0.0-0.4); Eosinophils Percent Auto 1.7 % (0-4); Hematocrit 39.6 % (37-47); Hemoglobin 12.1 g/dl (12.0-16.0); Imm Gran Abs Auto 0.02 X10*3/uL (0.00-0.03); Imm Gran Pct Auto 0.3 % (0.0-0.4); Lymphocytes Absolute Auto 2.5 X10*3/uL (1.2-4.9); Lymphocytes Percent Auto 35.3 % (20-40); Mean Corpuscular HGB Conc 30.6 g/dl (31.0-35.0); Mean Corpuscular Hemoglobin 27.6 pg (27.0-33.0); Mean Corpuscular Volume 90.2 fL (80-98); Mean Platelet Volume 11.4 fL (9.4-12.3); Monocytes Absolute Auto 0.4 X10*3/uL (0.1-1.2); Monocytes Percent Auto 6.2 % (2-11); Neutrophils Absolute Auto 3.9 X10*3/uL (2.0-8.3); Neutrophils Percent Auto 56.4 % (45-73); Platelet Count 224 X10*3/uL (160-400); Red Blood Count 4.39 X10*6/uL (4.20-5.50); Red Cell Distribution Width 13.1 % (11.0-16.0)
[2021-04-21 22:14] LABS: Anion Gap 12 (12-20); Blood Urea Nitrogen 12 mg/dL (9-16); Calcium 10.5 mg/dL (8.4-10.2); Carbon Dioxide 22 mmol/L (22-29); Chloride 110 mmol/L (96-108); Estimated Glomerular Filt Rate > 60; Glucose Random 95 mg/dL (60-115); Potassium 4.2 mmol/L (3.3-5.1); Sodium 140 mmol/L (135-145)
[2021-04-21 22:20] LABS: Troponin-I High Sensitivity < 3.5 ng/L (<3.5-17.0)
== END 2021-04-21 23:55 | disposition home or self-care (01) ==
PROVIDERS: Emergency Provider Internal Medicine; PCP Student in an Organized Health Care Education/Training Program
DX: R07.89 Other chest pain (principal); F33.1 Major depressive disorder, recurrent, moderate; F17.210 Nicotine dependence, cigarettes, uncomplicated; Z71.6 Tobacco abuse counseling; Z79.899 Other long term (current) drug therapy
CPT/HCPCS: 36415; 71045; 80048; 84484; 85025; 93005; 96374; 99284; 99285; J1885

== ENCOUNTER 2021-05-07 | Outpatient (REF) | payer MEDICARE, MEDICAID, SELFPAY ==
--- NOTE | ~2021-05-07 | FL_ITS ---
EXAMINATION: XR FLUOROSCOPY WITH IMAGES CLINICAL INFORMATION: Sacrococcygeal disorders, not elsewhere classified COMPARISON: Fluoroscopic spot view 12/31/2020 TECHNIQUE: Fluoroscopy performed by Dr. Jacques. Fluoroscopy time: 0.2 minutes DAP: 1.31 Gycm2 Images: 2 FINDINGS: There are spinal needles overlying the right sacral wing near the sacral foramen at 3 locations. There is contrast seen in the soft tissues and likely contrast in the exiting nerve sheath. FL/FL guidance in treatment room IMPRESSION: Fluoroscopy for pain management procedures.
== END 2021-05-07 00:01 | disposition home or self-care (01) ==
LOC: HO.RADIR
PROVIDERS: Visit Provider Internal Medicine
DX: Z13.89 Encounter for screening for other disorder (principal)

== ENCOUNTER → 2021-05-07 09:18 | Outpatient (BNVA) | payer MEDICARE, MEDICAID, SELFPAY | PROVIDERS: PCP Student in an Organized Health Care Education/Training Program; Visit Provider Internal Medicine | DX: M53.3 Sacrococcygeal disorders, not elsewhere classified (principal) | CPT/HCPCS: 27096 ==

== ENCOUNTER → 2021-06-18 14:24 | Outpatient (BNVA) | payer MEDICARE, MEDICAID, SELFPAY | PROVIDERS: PCP Student in an Organized Health Care Education/Training Program; Visit Provider Nurse Practitioner Family | DX: M53.3 Sacrococcygeal disorders, not elsewhere classified (principal); M79.7 Fibromyalgia | CPT/HCPCS: Q3014 ==

== ENCOUNTER 2021-08-10 11:32 | Emergency (ER) | payer MEDICARE, MEDICAID, SELFPAY ==
[2021-08-10 13:59] VITALS: BP 115/71; PULSE 64; RESP 18; TEMP 36.1; O2SAT 100; BMI 27.6
[2021-08-10 13:59] LABS: Appearance Urine HAZY; Color Urine YELLOW; Glucose Urine UA NEG (NEG); Leukocyte Esterase Urine NEG (NEG); Nitrite Urine NEG (NEG); PH 6.5 (5.0-8.0); Urine Blood NEG (NEG); Urine Ketones NEG (NEG); Urine Protein NEG (NEG-TRACE)
[2021-08-10 14:02] LABS: UPreg QC Valid YES; Urine Pregnancy NEGATIVE (NEGATIVE)
== END 2021-08-10 21:10 | disposition left against medical advice (07) ==
PROVIDERS: Emergency Provider Emergency Medicine; PCP Student in an Organized Health Care Education/Training Program
DX: R10.30 Lower abdominal pain, unspecified (principal); J02.9 Acute pharyngitis, unspecified
CPT/HCPCS: 81003; 81025; 99282; 99283

== ENCOUNTER 2021-08-11 10:20 | Emergency (ER) | payer MEDICARE, MEDICAID, SELFPAY ==
--- NOTE | ~2021-08-11 | XR_ITS ---
EXAMINATION: XR CHEST CLINICAL INFORMATION: Chest pain. Abdominal pain. COMPARISON: Chest 04/21/2021 TECHNIQUE: 2 views of the chest were obtained. FINDINGS: No significant abnormality is noted involving the heart, lungs, mediastinum, bony thorax or soft tissues. XR/XR chest 2V IMPRESSION: Unremarkable chest examination.
[2021-08-11 11:24] VITALS: BP 112/77; PULSE 75; RESP 18; TEMP 36.1; O2SAT 98; BMI 27.6
--- NOTE | 2021-08-11 11:24 | ECG_ITS ---
Test Reason : chest pain Blood Pressure : / mmHG Vent. Rate : 082 BPM Atrial Rate : 068 BPM P-R Int : 154 ms QRS Dur : 086 ms QT Int : 370 ms P-R-T Axes : 052 -38 042 degrees QTc Int : 432 ms Sinus rhythm with sinus arrhythmia Incomplete right bundle branch block Left axis deviation Low voltage QRS Abnormal ECG When compared with ECG of 21-APR-2021 20:39, No significant changes seen Referred By: Kaylen Kruse Electronically Signed By:EFRAÍN BALNC
--- NOTE | 2021-08-11 11:25 | ED.GENADULT ---
HPI - General Adult General Chief complaint: Chest Pain <ANGELINA Macdonald - Last Filed: 08/12/21 16:52> Stated complaint: chest pain headache and back pain weak <ANGELINA Macodnald - Last Filed: 08/12/21 16:52> Time Seen by Provider: 08/11/21 11:24 <ANGELINA Macdonald - Last Filed: 08/12/21 16:52> Related Data Home medications: Home Medications Medication Instructions Recorded Confirmed famotidine 20 mg tablet 20 mg PO BEDTIME 08/09/20 02/04/21 fluticasone propionate 50 2 spray INTRANASAL DAILY 08/09/20 02/04/21 mcg/actuation nasal spray,suspension hydroxyzine HCl 50 mg tablet 50 mg PO TID 08/09/20 02/04/21 loratadine 10 mg tablet 10 mg PO DAILY 08/09/20 02/04/21 naproxen 500 mg tablet 500 mg PO Q12H PRN 08/09/20 02/04/21 paroxetine HCl 40 mg tablet 40 mg PO DAILY 08/09/20 02/04/21 Previous Rx's Medication Instructions Recorded omeprazole 20 mg capsule,delayed 20 mg PO BID 30 Days #60 cap 07/25/20 release tramadol 50 mg tablet 50 mg PO TID PRN 3 Days #9 tab 11/05/20 cyclobenzaprine 10 mg tablet 10 mg PO TID PRN #14 tab 11/15/20 oxycodone 5 mg tablet 5 mg PO Q6H PRN #14 tab 11/15/20 cyclobenzaprine 10 mg tablet 10 mg PO TID PRN #12 tab 04/08/21 lidocaine 5 % topical patch 1 patch TOPICAL DAILY #15 ea 04/08/21 (Lidoderm) naproxen 500 mg tablet 500 mg PO BID PRN #20 tab 04/08/21 lorazepam 1 mg tablet 1 mg PO ONCE PRN #2 tab 04/25/21 metoclopramide HCl 5 mg tablet 5 mg PO DAILY PRN #7 tab 08/11/21 (Reglan) sumatriptan succinate 50 mg tablet 50 mg PO Q2-4H PRN #10 tab 08/11/21 <ANGELINA Macdonald - Last Filed: 08/12/21 16:52> Allergies/adverse reactions: Allergies Allergy/AdvReac Type Severity Reaction Status Date / Time ibuprofen AdvReac Severe GI upset Verified 04/08/21 16:30 <ANGELINA Macdonald - Last Filed: 08/12/21 16:52> [facility] Past Medical History Medical History: Medical History Anxiety Cyst of left breast (~2008) Herniated intervertebral disc <ANGELINA Macdonald - Last Filed: 08/12/21 16:52> Surgical History: Surgical History H/O section H/O left breast biopsy (10/27/11) History of esophagogastroduodenoscopy (EGD) Hx of colonoscopy Hx of laparoscopy S/P breast biopsy Status post appendectomy Thyroid nodule <ANGELINA Macdonald - Last Filed: 08/12/21 16:52> Family History Family History: Family History Father Suicide Mother Fibrous breast lumps H/O thyroidectomy Diabetes Brother Collapse of both lungs Kidney problem H/O thyroidectomy Son Family history of Klinefelter syndrome Maternal Grandmother Stomach cancer Maternal Grandfather Lung cancer Family/Other Breast cancer Depression Maternal Aunt Ovarian cancer Paternal Uncle History of open heart surgery Maternal Uncle Suicide <ANGELINA Macdonald - Last Filed: 08/12/21 16:52> Social History Social History: Social History Household Members: Children Household Members Other:: 1 daughter, 2 sons Alcohol intake: current Alcohol intake frequency: holidays/special occasions only Cigarette Packs Per Day: 0.75 Cigarettes Per Day: 15.0 Advance Directives: No Advance Directives Information Provided: No Patient : No <ANGELINA Macdonald - Last Filed: 08/12/21 16:52> Physical Exam Vital Signs: Vital Signs: Last Vital Signs Temp 97.0 F 08/11/21 11:24 Pulse 86 08/11/21 16:39 Resp 18 08/11/21 11:24 BP 113/84 08/11/21 16:39 Pulse Ox 98 08/11/21 16:39 BMI result Body Mass Index 27.6 <ANGELINA Macdonald - Last Filed: 08/12/21 16:52> Vital Signs: Last Vital Signs Temp 97.0 F 08/11/21 11:24 Pulse 86 08/11/21 16:39 Resp 18 08/11/21 11:24 BP 113/84 08/11/21 16:39 Pulse Ox 98 08/11/21 16:39 BMI result Body Mass Index 27.6 <Tayler Meier MD - Last Filed: 08/11/21 18:05> Course Course Course Narrative: 11:25am - Quick assessment. Patient alert oriented x3. Not in any acute distress. Vital signs are stable within normal limits. No focal neuro defects are noted. 51-year-old female presenting to the ED with complaints of atraumatic anterior chest pain that started yesterday that radiates to her left side of her back. Also reports lower abdominal pain that radiates to right side of her back. Also reports intermittent headaches. Also reports bilateral hand numbness and bilateral leg swelling. Reports that she tested positive for COVID in June and has been having intermittent chest pains. Vaccinated to COVID. Denies any dizziness, shortness of breath, cough, trouble swallowing or breathing or palpitations or any other symptoms complaints or concerns at this time At this time patient will be sent back to the waiting room and labs, EKG and chest x-ray were ordered at this time and she will be further evaluated in the main ED. Patient understands agrees with this plan. <ANGELINA Macdonald - Last Filed: 08/12/21 16:52> Medical Decision Making Lab Data Result diagrams: : 08/11/21 11:40 08/11/21 11:40 <ANGELINA Macdonald - Last Filed: 08/12/21 16:52> Labs: Lab Results 08/11/21 08/11/21 08/11/21 Range/Units 11:40 11:40 11:40 WBC 6.2 (4.8-10.8) X10*3/uL RBC 4.61 (4.20-5.50) X10*6/uL Hgb 12.9 (12.0-16.0) g/dl Hct 41.4 (37.0-47.0) % MCV 89.8 (80.0-98.0) fL MCH 28.0 (27.0-33.0) pg MCHC 31.2 (31.0-35.0) g/dl RDW 13.7 (11.0-16.0) % Plt Count 244 (160-400) X10*3/uL MPV 10.8 (9.4-12.3) fL Immature Gran % (Auto) 0.2 (0.0-0.4) % Neut % (Auto) 59.5 (45-73) % Lymph % (Auto) 31.7 (20-40) % [place] % (Auto) 6.4 (2-11) % Eos % (Auto) 1.9 (0-4) % Baso % (Auto) 0.3 (0-2) % Lymph # (Auto) 2.0 (1.2-4.9) X10*3/uL [place] # (Auto) 0.4 (0.1-1.2) X10*3/uL Eos # (Auto) 0.1 (0.0-0.4) X10*3/uL Baso # (Auto) 0.0 (0.0-0.2) X10*3/uL Abs Immat Gran (auto) 0.01 (0.00-0.03) X10*3/uL Absolute Neuts (auto) 3.7 (2.0-8.3) x10*3/uL Absolute Nucleated RBC 0.000 (0.0-0.012) X10*3/uL Nucleated RBC % (auto) 0.0 (0.0-0.2) /100WBC PT 11.1 (9.9-13.0) SEC INR 1.0 (0.9-1.1) D-Dimer High Sensitivty < 150 NG/ML Sodium 139 (135-145) mmol/L Potassium 4.6 (3.3-5.1) mmol/L Chloride 109 H (96-108) mmol/L Carbon Dioxide 25 (22-29) mmol/L Anion Gap 10 L (12-20) BUN 10 (9-16) mg/dL Creatinine 0.90 (0.5-1.4) mg/dL Estim Creat Clear Calc 66.3 Estimated GFR > 60 Random Glucose 91 (60-115) mg/dL Calcium 11.1 H (8.4-10.2) mg/dL Magnesium 2.1 (1.6-2.6) mg/dL Total Bilirubin 0.6 (0.0-1.0) mg/dL AST 19 (5-31) U/L ALT 19 (0-31) U/L Alkaline Phosphatase 121 H (39-117) U/L Troponin I High Sens (<3.5-17.0) ng/L Total Protein 6.9 (6.5-8.0) g/dL Albumin 4.5 (3.5-5.0) g/dL Lipase 26 (8-78) U/L Urine Color Urine Appearance Urine pH (5.0-8.0) Ur Specific [place] (1.005-1.025) Urine Protein (NEG-TRACE) MG/DL Urine Glucose (UA) (NEG) MG/DL Urine Ketones (NEG) MG/DL Urine Blood (NEG) Urine Nitrite (NEG) Ur Leukocyte Esterase (NEG) Urine Test (NEGATIVE) 08/11/21 08/11/21 08/11/21 Range/Units 11:40 16:42 16:42 WBC (4.8-10.8) X10*3/uL RBC (4.20-5.50) X10*6/uL Hgb (12.0-16.0) g/dl Hct (37.0-47.0) % MCV (80.0-98.0) fL MCH (27.0-33.0) pg MCHC (31.0-35.0) g/dl RDW (11.0-16.0) % Plt Count (160-400) X10*3/uL MPV (9.4-12.3) fL Immature Gran % (Auto) (0.0-0.4) % Neut % (Auto) (45-73) % Lymph % (Auto) (20-40) % [place] % (Auto) (2-11) % Eos % (Auto) (0-4) % Baso % (Auto) (0-2) % Lymph # (Auto) (1.2-4.9) X10*3/uL [place] # (Auto) (0.1-1.2) X10*3/uL Eos # (Auto) (0.0-0.4) X10*3/uL Baso # (Auto) (0.0-0.2) X10*3/uL Abs Immat Gran (auto) (0.00-0.03) X10*3/uL Absolute Neuts (auto) (2.0-8.3) x10*3/uL Absolute Nucleated RBC (0.0-0.012) X10*3/uL Nucleated RBC % (auto) (0.0-0.2) /100WBC PT (9.9-13.0) SEC INR (0.9-1.1) D-Dimer High Sensitivty NG/ML Sodium (135-145) mmol/L Potassium (3.3-5.1) mmol/L Chloride (96-108) mmol/L Carbon Dioxide (22-29) mmol/L Anion Gap (12-20) BUN (9-16) mg/dL Creatinine (0.5-1.4) mg/dL Estim Creat Clear Calc Estimated GFR Random Glucose (60-115) mg/dL Calcium (8.4-10.2) mg/dL Magnesium (1.6-2.6) mg/dL Total Bilirubin (0.0-1.0) mg/dL AST (5-31) U/L ALT (0-31) U/L Alkaline Phosphatase (39-117) U/L Troponin I High Sens < 3.5 (<3.5-17.0) ng/L Total Protein (6.5-8.0) g/dL Albumin (3.5-5.0) g/dL Lipase (8-78) U/L Urine Color YELLOW Urine Appearance HAZY Urine pH 6.0 (5.0-8.0) Ur Specific [place] 1.025 (1.005-1.025) Urine Protein NEG (NEG-TRACE) MG/DL Urine Glucose (UA) NEG (NEG) MG/DL Urine Ketones NEG (NEG) MG/DL Urine Blood NEG (NEG) Urine Nitrite NEG (NEG) Ur Leukocyte Esterase NEG (NEG) Urine Test NEGATIVE (NEGATIVE) <ANGELINA Macdonald - Last Filed: 08/12/21 16:52> Lab Results 08/11/21 08/11/21 08/11/21 Range/Units 11:40 11:40 11:40 WBC 6.2 (4.8-10.8) X10*3/uL RBC 4.61 (4.20-5.50) X10*6/uL Hgb 12.9 (12.0-16.0) g/dl Hct 41.4 (37.0-47.0) % MCV 89.8 (80.0-98.0) fL MCH 28.0 (27.0-33.0) pg MCHC 31.2 (31.0-35.0) g/dl RDW 13.7 (11.0-16.0) % Plt Count 244 (160-400) X10*3/uL MPV 10.8 (9.4-12.3) fL Immature Gran % (Auto) 0.2 (0.0-0.4) % Neut % (Auto) 59.5 (45-73) % Lymph % (Auto) 31.7 (20-40) % [place] % (Auto) 6.4 (2-11) % Eos % (Auto) 1.9 (0-4) % Baso % (Auto) 0.3 (0-2) % Lymph # (Auto) 2.0 (1.2-4.9) X10*3/uL [place] # (Auto) 0.4 (0.1-1.2) X10*3/uL Eos # (Auto) 0.1 (0.0-0.4) X10*3/uL Baso # (Auto) 0.0 (0.0-0.2) X10*3/uL Abs Immat Gran (auto) 0.01 (0.00-0.03) X10*3/uL Absolute Neuts (auto) 3.7 (2.0-8.3) x10*3/uL Absolute Nucleated RBC 0.000 (0.0-0.012) X10*3/uL Nucleated RBC % (auto) 0.0 (0.0-0.2) /100WBC PT 11.1 (9.9-13.0) SEC INR 1.0 (0.9-1.1) D-Dimer High Sensitivty < 150 NG/ML Sodium 139 (135-145) mmol/L Potassium 4.6 (3.3-5.1) mmol/L Chloride 109 H (96-108) mmol/L Carbon Dioxide 25 (22-29) mmol/L Anion Gap 10 L (12-20) BUN 10 (9-16) mg/dL Creatinine 0.90 (0.5-1.4) mg/dL Estim Creat Clear Calc 66.3 Estimated GFR > 60 Random Glucose 91 (60-115) mg/dL Calcium 11.1 H (8.4-10.2) mg/dL Magnesium 2.1 (1.6-2.6) mg/dL Total Bilirubin 0.6 (0.0-1.0) mg/dL AST 19 (5-31) U/L ALT 19 (0-31) U/L Alkaline Phosphatase 121 H (39-117) U/L Troponin I High Sens (<3.5-17.0) ng/L Total Protein 6.9 (6.5-8.0) g/dL Albumin 4.5 (3.5-5.0) g/dL Lipase 26 (8-78) U/L Urine Color Urine Appearance Urine pH (5.0-8.0) Ur Specific [place] (1.005-1.025) Urine Protein (NEG-TRACE) MG/DL Urine Glucose (UA) (NEG) MG/DL Urine Ketones (NEG) MG/DL Urine Blood (NEG) Urine Nitrite (NEG) Ur Leukocyte Esterase (NEG) Urine Test (NEGATIVE) 08/11/21 08/11/21 08/11/21 Range/Units 11:40 16:42 16:42 WBC (4.8-10.8) X10*3/uL RBC (4.20-5.50) X10*6/uL Hgb (12.0-16.0) g/dl Hct (37.0-47.0) % MCV (80.0-98.0) fL MCH (27.0-33.0) pg MCHC (31.0-35.0) g/dl RDW (11.0-16.0) % Plt Count (160-400) X10*3/uL MPV (9.4-12.3) fL Immature Gran % (Auto) (0.0-0.4) % Neut % (Auto) (45-73) % Lymph % (Auto) (20-40) % [place] % (Auto) (2-11) % Eos % (Auto) (0-4) % Baso % (Auto) (0-2) % Lymph # (Auto) (1.2-4.9) X10*3/uL [place] # (Auto) (0.1-1.2) X10*3/uL Eos # (Auto) (0.0-0.4) X10*3/uL Baso # (Auto) (0.0-0.2) X10*3/uL Abs Immat Gran (auto) (0.00-0.03) X10*3/uL Absolute Neuts (auto) (2.0-8.3) x10*3/uL Absolute Nucleated RBC (0.0-0.012) X10*3/uL Nucleated RBC % (auto) (0.0-0.2) /100WBC PT (9.9-13.0) SEC INR (0.9-1.1) D-Dimer High Sensitivty NG/ML Sodium (135-145) mmol/L Potassium (3.3-5.1) mmol/L Chloride (96-108) mmol/L Carbon Dioxide (22-29) mmol/L Anion Gap (12-20) BUN (9-16) mg/dL Creatinine (0.5-1.4) mg/dL Estim Creat Clear Calc Estimated GFR Random Glucose (60-115) mg/dL Calcium (8.4-10.2) mg/dL Magnesium (1.6-2.6) mg/dL Total Bilirubin (0.0-1.0) mg/dL AST (5-31) U/L ALT (0-31) U/L Alkaline Phosphatase (39-117) U/L Troponin I High Sens < 3.5 (<3.5-17.0) ng/L Total Protein (6.5-8.0) g/dL Albumin (3.5-5.0) g/dL Lipase (8-78) U/L Urine Color YELLOW Urine Appearance HAZY Urine pH 6.0 (5.0-8.0) Ur Specific [place] 1.025 (1.005-1.025) Urine Protein NEG (NEG-TRACE) MG/DL Urine Glucose (UA) NEG (NEG) MG/DL Urine Ketones NEG (NEG) MG/DL Urine Blood NEG (NEG) Urine Nitrite NEG (NEG) Ur Leukocyte Esterase NEG (NEG) Urine Test NEGATIVE (NEGATIVE) <Tayler Meier MD - Last Filed: 08/11/21 18:05> Discharge Plan Discharge Clinical Impression: Headache, migraine, Atypical chest pain <ANGELINA Macdonald - Last Filed: 08/12/21 16:52> Patient Disposition: Home, Self-Care <ANGELINA Macdonald - Last Filed: 08/12/21 16:52> Instructions: Chest Pain (ED), Migraine Headache (ED) <ANGELINA Macdonald - Last Filed: 08/12/21 16:52> Additional Instructions: Please follow-up with your primary care physician tomorrow. If you have any worsening or new symptoms, please return to the emergency room or call 911 <ANGELINA Macdonald - Last Filed: 08/12/21 16:52> Prescriptions: New sumatriptan succinate 50 mg tablet 50 mg PO Q2-4H PRN (Reason: migraine headache) Qty: 10 RF: 0 metoclopramide HCl [Reglan] 5 mg tablet 5 mg PO DAILY PRN (Reason: nausea and vomiting) Qty: 7 RF: 0 No Action omeprazole 20 mg capsule,delayed release(DR/EC) 20 mg PO BID 30 Days Qty: 60 RF: 3 lorazepam 1 mg tablet 1 mg PO ONCE PRN (Reason: painful procedure) Qty: 2 RF: 0 tramadol 50 mg tablet 50 mg PO TID PRN (Reason: pain) 3 Days Qty: 9 RF: 0 oxycodone 5 mg tablet 5 mg PO Q6H PRN (Reason: pain) Qty: 14 RF: 0 cyclobenzaprine 10 mg tablet 10 mg PO TID PRN (Reason: muscle spasm) Qty: 14 RF: 0 cyclobenzaprine 10 mg tablet 10 mg PO TID PRN (Reason: muscle spasm) Qty: 12 RF: 0 lidocaine [Lidoderm] 5 % adhesive patch,medicated 1 patch topical DAILY Qty: 15 RF: 0 naproxen 500 mg tablet 500 mg PO BID PRN (Reason: pain) Qty: 20 RF: 0 paroxetine HCl 40 mg tablet 40 mg PO DAILY RF: 0 fluticasone propionate 50 mcg/actuation spray,suspension 2 spray intranasal DAILY RF: 0 loratadine 10 mg tablet 10 mg PO DAILY RF: 0 hydroxyzine HCl 50 mg tablet 50 mg PO TID RF: 0 naproxen 500 mg tablet 500 mg PO Q12H PRN (Reason: pain) RF: 0 famotidine 20 mg tablet 20 mg PO BEDTIME RF: 0 <ANGELINA Macdonald - Last Filed: 08/12/21 16:52> Interventions: ED Discharge Assessment Last Done: 08/11/21 18:52 <ANGELINA Macdonald - Last Filed: 08/12/21 16:52> Discharge Date/Time: 08/11/21 18:53 <ANGELINA Macdonald - Last Filed: 08/12/21 16:52>
[2021-08-11 11:47] LABS: MANUAL DIFF FLAG NO
[2021-08-11 11:48] LABS: Basophils Percent Auto 0.3 % (0-2); Eosinophils Absolute Auto 0.1 X10*3/uL (0.0-0.4); Eosinophils Percent Auto 1.9 % (0-4); Hematocrit 41.4 % (37.0-47.0); Hemoglobin 12.9 g/dl (12.0-16.0); Imm Gran Abs Auto 0.01 X10*3/uL (0.00-0.03); Imm Gran Pct Auto 0.2 % (0.0-0.4); Lymphocytes Percent Auto 31.7 % (20-40); Mean Corpuscular HGB Conc 31.2 g/dl (31.0-35.0); Mean Corpuscular Volume 89.8 fL (80.0-98.0); Mean Platelet Volume 10.8 fL (9.4-12.3); Monocytes Absolute Auto 0.4 X10*3/uL (0.1-1.2); Monocytes Percent Auto 6.4 % (2-11); Neutrophils Absolute Auto 3.7 x10*3/uL (2.0-8.3); Neutrophils Percent Auto 59.5 % (45-73); Platelet Count 244 X10*3/uL (160-400); Red Blood Count 4.61 X10*6/uL (4.20-5.50); Red Cell Distribution Width 13.7 % (11.0-16.0); White Blood Count 6.2 X10*3/uL (4.8-10.8)
[2021-08-11 11:53] LABS: Prothrombin Time 11.1 SEC (9.9-13.0)
[2021-08-11 12:06] LABS: Alanine Aminotransferase 19 U/L (0-31); Albumin Level 4.5 g/dL (3.5-5.0); Alkaline Phosphatase 121 U/L (39-117); Anion Gap 10 (12-20); Aspartate Amino Transferase 19 U/L (5-31); Bilirubin Total 0.6 mg/dL (0.0-1.0); Blood Urea Nitrogen 10 mg/dL (9-16); Carbon Dioxide 25 mmol/L (22-29); Chloride 109 mmol/L (96-108); Creatinine Clr Calc Pharmacy 66.3; Estimated Glomerular Filt Rate > 60; Glucose Random 91 mg/dL (60-115); Lipase 26 U/L (8-78); Magnesium 2.1 mg/dL (1.6-2.6); Potassium 4.6 mmol/L (3.3-5.1); Sodium 139 mmol/L (135-145); Total Protein 6.9 g/dL (6.5-8.0)
[2021-08-11 12:09] LABS: Troponin-I High Sensitivity < 3.5 ng/L (<3.5-17.0)
[2021-08-11 12:13] LABS: Calcium 11.1 mg/dL (8.4-10.2)
[2021-08-11 16:39] VITALS: BP 113/84; PULSE 86; O2SAT 98
--- NOTE | 2021-08-11 16:46 | ED_ITS ---
HPI - General Adult General Chief complaint: Chest Pain Stated complaint: chest pain headache and back pain weak Time Seen by Provider: 08/11/21 11:24 Source: patient Mode of arrival: ambulatory Limitations: no limitations History of Present Illness HPI narrative: Patient comes to emergency room complaining of a headache and chest discomfort. Patient states that she has had a headache since yesterday, chest discomfort for approximately 1 month now since she was diagnosed with COVID-19. Patient states that she was here yesterday in the emergency room, her main concern yesterday was abdominal pain, however now is a generalized malaise. Patient denies vomiting or diarrhea. Patient does complain of nausea. Patient denies fever chills, no flank pain Related Data Home Medications Medication Instructions Recorded Confirmed famotidine 20 mg tablet 20 mg PO BEDTIME 08/09/20 02/04/21 fluticasone propionate 50 2 spray INTRANASAL DAILY 08/09/20 02/04/21 mcg/actuation nasal spray,suspension hydroxyzine HCl 50 mg tablet 50 mg PO TID 08/09/20 02/04/21 loratadine 10 mg tablet 10 mg PO DAILY 08/09/20 02/04/21 naproxen 500 mg tablet 500 mg PO Q12H PRN 08/09/20 02/04/21 paroxetine HCl 40 mg tablet 40 mg PO DAILY 08/09/20 02/04/21 Previous Rx's Medication Instructions Recorded omeprazole 20 mg capsule,delayed 20 mg PO BID 30 Days #60 cap 07/25/20 release tramadol 50 mg tablet 50 mg PO TID PRN 3 Days #9 tab 11/05/20 cyclobenzaprine 10 mg tablet 10 mg PO TID PRN #14 tab 11/15/20 oxycodone 5 mg tablet 5 mg PO Q6H PRN #14 tab 11/15/20 cyclobenzaprine 10 mg tablet 10 mg PO TID PRN #12 tab 04/08/21 lidocaine 5 % topical patch 1 patch TOPICAL DAILY #15 ea 04/08/21 (Lidoderm) naproxen 500 mg tablet 500 mg PO BID PRN #20 tab 04/08/21 lorazepam 1 mg tablet 1 mg PO ONCE PRN #2 tab 04/25/21 metoclopramide HCl 5 mg tablet 5 mg PO DAILY PRN #7 tab 08/11/21 (Reglan) sumatriptan succinate 50 mg tablet 50 mg PO Q2-4H PRN #10 tab 08/11/21 Allergies Allergy/AdvReac Type Severity Reaction Status Date / Time ibuprofen AdvReac Severe GI upset Verified 04/08/21 16:30 Review of Systems Review of Systems: Constitutional : No Weight loss, No Fever, No Chills, No Night Sweats, complaining of fatigue and generalized malaise ENT/Mouth : No Hearing loss, No Ear Pain, No Nasal Congestion, No Sinus Pain, No Hoarseness, No sore throat, No Rhinorrhea, No Swallowing Difficulty Eyes: No Eye Pain, No Swelling, No Redness, No Foreign Body, No Discharge, No Vision Changes Cardiovascular : Complaining of constant chest discomfort for a month now, No SOB, No Dyspnea on Exertion, No Orthopnea, No Edema, No Palpitations Respiratory : No Cough, No Sputum, complaining of occasional Wheezing that responds well to her inhaler No Smoke Exposure, No Dyspnea Gastrointestinal : Complaining ofNausea, No Vomiting, No Diarrhea, No Constipation, yesterday complaining of diffuse abdominal cramping, No Hematochezia, No Melena Genitourinary : no irregular bleeding, No Dysuria, No Urinary Frequency, No Hematuria, No Urinary Incontinence, No Urgency, No Flank Pain, No Urinary Flow Changes, No Hesitancy Musculoskeletal : No joint pain, No Myalgias, No Joint Swelling Skin : No Skin Lesions, No rash Neuro : No Weakness, No Numbness, No Paresthesias, No Loss of Consciousness, No Dizziness, No Headache Psych : No Anxiety/Panic, No Depression, No SI/HI/AH/VH, No Social Issues, Heme/Lymph: No Bruising, No Bleeding,No Lymphadenopathy Endocrine : No Polyuria, No Polydipsia, No Temperature Intolerance PMFSH Past Medical History Medical History Anxiety Cyst of left breast (~2008) Herniated intervertebral disc Surgical History H/O section H/O left breast biopsy (10/27/11) History of esophagogastroduodenoscopy (EGD) Hx of colonoscopy Hx of laparoscopy S/P breast biopsy Status post appendectomy Thyroid nodule Family History Family History Father Suicide Mother Fibrous breast lumps H/O thyroidectomy Diabetes Brother Collapse of both lungs Kidney problem H/O thyroidectomy Son Family history of Klinefelter syndrome Maternal Grandmother Stomach cancer Maternal Grandfather Lung cancer Family/Other Breast cancer Depression Maternal Aunt Ovarian cancer Paternal Uncle History of open heart surgery Maternal Uncle Suicide Social History Social History Household Members: Children Household Members Other:: 1 daughter, 2 sons Alcohol intake: current Alcohol intake frequency: holidays/special occasions only Cigarette Packs Per Day: 0.75 Cigarettes Per Day: 15.0 Advance Directives: No Advance Directives Information Provided: No Patient : No Physical Exam Vital Signs: Vital Signs: Last Vital Signs Temp 97.0 F 08/11/21 11:24 Pulse 86 08/11/21 16:39 Resp 18 08/11/21 11:24 BP 113/84 08/11/21 16:39 Pulse Ox 98 08/11/21 16:39 BMI result Body Mass Index 27.6 Const: Other: Appearance: Alert. Oriented X3. No acute distress. Crying Eyes: Pupils equal, round and reactive to light. ENT: Pharynx normal. Neck: Normal inspection. Neck supple. No lymph nodes noted. No crepitus CVS: Normal heart rate and rhythm. Pulses normal. Normal S1 and S2 Respiratory: No respiratory distress. Breath sounds normal. No Wheezing. No rales Abdomen: Soft and nontender. No distention. No guarding, no rigidity, no rebound Skin: Skin warm and dry. Normal skin color. Normal skin turgor. Extremities: No lower extremity edema. No Lacerations. No Rash Neuro: Oriented X 3. No motor deficit. No sensory deficit. Moving all extermities. No slurred speech. Course Course Course Narrative: Patient was given p.o. sumatriptan, IV fluids and metoclopramide. Patient states that the headache is nearly gone, states she feels much better. Patient no longer having abdominal pain. Patient denies any chest pain. One in and D-dimer negative Medical Decision Making Lab Data Result diagrams: 08/11/21 11:40 08/11/21 11:40 Labs: Lab Results 08/11/21 08/11/2121 Range/Units 11:40 11:40 11:40 WBC 6.2 (4.8-10.8) X10*3/uL RBC 4.61 (4.20-5.50) X10*6/uL Hgb 12.9 (12.0-16.0) g/dl Hct 41.4 (37.0-47.0) % MCV 89.8 (80.0-98.0) fL MCH 28.0 (27.0-33.0) pg MCHC 31.2 (31.0-35.0) g/dl RDW 13.7 (11.0-16.0) % Plt Count 244 (160-400) X10*3/uL MPV 10.8 (9.4-12.3) fL Immature Gran % (Auto) 0.2 (0.0-0.4) % Neut % (Auto) 59.5 (45-73) % Lymph % (Auto) 31.7 (20-40) % [place] % (Auto) 6.4 (2-11) % Eos % (Auto) 1.9 (0-4) % Baso % (Auto) 0.3 (0-2) % Lymph # (Auto) 2.0 (1.2-4.9) X10*3/uL [place] # (Auto) 0.4 (0.1-1.2) X10*3/uL Eos # (Auto) 0.1 (0.0-0.4) X10*3/uL Baso # (Auto) 0.0 (0.0-0.2) X10*3/uL Abs Immat Gran (auto) 0.01 (0.00-0.03) X10*3/uL Absolute Neuts (auto) 3.7 (2.0-8.3) x10*3/uL Absolute Nucleated RBC 0.000 (0.0-0.012) X10*3/uL Nucleated RBC % (auto) 0.0 (0.0-0.2) /100WBC PT 11.1 (9.9-13.0) SEC INR 1.0 (0.9-1.1) D-Dimer High Sensitivty < 150 NG/ML Sodium 139 (135-145) mmol/L Potassium 4.6 (3.3-5.1) mmol/L Chloride 109 H (96-108) mmol/L Carbon Dioxide 25 (22-29) mmol/L Anion Gap 10 L (12-20) BUN 10 (9-16) mg/dL Creatinine 0.90 (0.5-1.4) mg/dL Estim Creat Clear Calc 66.3 Estimated GFR > 60 Random Glucose 91 (60-115) mg/dL Calcium 11.1 H (8.4-10.2) mg/dL Magnesium 2.1 (1.6-2.6) mg/dL Total Bilirubin 0.6 (0.0-1.0) mg/dL AST 19 (5-31) U/L ALT 19 (0-31) U/L Alkaline Phosphatase 121 H (39-117) U/L Troponin I High Sens (<3.5-17.0) ng/L Total Protein 6.9 (6.5-8.0) g/dL Albumin 4.5 (3.5-5.0) g/dL Lipase 26 (8-78) U/L Urine Color Urine Appearance Urine pH (5.0-8.0) Ur Specific [place] (1.005-1.025) Urine Protein (NEG-TRACE) MG/DL Urine Glucose (UA) (NEG) MG/DL Urine Ketones (NEG) MG/DL Urine Blood (NEG) Urine Nitrite (NEG) Ur Leukocyte Esterase (NEG) Urine Test (NEGATIVE) 08/11/21 08/11/21 08/11/21 Range/Units 11:40 16:42 16:42 WBC (4.8-10.8) X10*3/uL RBC (4.20-5.50) X10*6/uL Hgb (12.0-16.0) g/dl Hct (37.0-47.0) % MCV (80.0-98.0) fL MCH (27.0-33.0) pg MCHC (31.0-35.0) g/dl RDW (11.0-16.0) % Plt Count (160-400) X10*3/uL MPV (9.4-12.3) fL Immature Gran % (Auto) (0.0-0.4) % Neut % (Auto) (45-73) % Lymph % (Auto) (20-40) % [place] % (Auto) (2-11) % Eos % (Auto) (0-4) % Baso % (Auto) (0-2) % Lymph # (Auto) (1.2-4.9) X10*3/uL [place] # (Auto) (0.1-1.2) X10*3/uL Eos # (Auto) (0.0-0.4) X10*3/uL Baso # (Auto) (0.0-0.2) X10*3/uL Abs Immat Gran (auto) (0.00-0.03) X10*3/uL Absolute Neuts (auto) (2.0-8.3) x10*3/uL Absolute Nucleated RBC (0.0-0.012) X10*3/uL Nucleated RBC % (auto) (0.0-0.2) /100WBC PT (9.9-13.0) SEC INR (0.9-1.1) D-Dimer High Sensitivty NG/ML Sodium (135-145) mmol/L Potassium (3.3-5.1) mmol/L Chloride (96-108) mmol/L Carbon Dioxide (22-29) mmol/L Anion Gap (12-20) BUN (9-16) mg/dL Creatinine (0.5-1.4) mg/dL Estim Creat Clear Calc Estimated GFR Random Glucose (60-115) mg/dL Calcium (8.4-10.2) mg/dL Magnesium (1.6-2.6) mg/dL Total Bilirubin (0.0-1.0) mg/dL AST (5-31) U/L ALT (0-31) U/L Alkaline Phosphatase (39-117) U/L Troponin I High Sens < 3.5 (<3.5-17.0) ng/L Total Protein (6.5-8.0) g/dL Albumin (3.5-5.0) g/dL Lipase (8-78) U/L Urine Color YELLOW Urine Appearance HAZY Urine pH 6.0 (5.0-8.0) Ur Specific [place] 1.025 (1.005-1.025) Urine Protein NEG (NEG-TRACE) MG/DL Urine Glucose (UA) NEG (NEG) MG/DL Urine Ketones NEG (NEG) MG/DL Urine Blood NEG (NEG) Urine Nitrite NEG (NEG) Ur Leukocyte Esterase NEG (NEG) Urine Test NEGATIVE (NEGATIVE) ECG Data Attestation: I personally reviewed and interpreted this ECG as follows: (Sinus rhythm, heart rate 82, no ST segment depression or elevation, low-voltage QRS complexes, QTC 432) Discharge Plan Discharge Clinical Impression: Headache, migraine, Atypical chest pain Patient Disposition: Home, Self-Care Instructions: Chest Pain (ED), Migraine Headache (ED) Additional Instructions: Please follow-up with your primary care physician tomorrow. If you have any worsening or new symptoms, please return to the emergency room or call 911 Prescriptions: New sumatriptan succinate 50 mg tablet 50 mg PO Q2-4H PRN (Reason: migraine headache) Qty: 10 RF: 0 metoclopramide HCl [Reglan] 5 mg tablet 5 mg PO DAILY PRN (Reason: nausea and vomiting) Qty: 7 RF: 0 No Action omeprazole 20 mg capsule,delayed release(DR/EC) 20 mg PO BID 30 Days Qty: 60 RF: 3 lorazepam 1 mg tablet 1 mg PO ONCE PRN (Reason: painful procedure) Qty: 2 RF: 0 tramadol 50 mg tablet 50 mg PO TID PRN (Reason: pain) 3 Days Qty: 9 RF: 0 oxycodone 5 mg tablet 5 mg PO Q6H PRN (Reason: pain) Qty: 14 RF: 0 cyclobenzaprine 10 mg tablet 10 mg PO TID PRN (Reason: muscle spasm) Qty: 14 RF: 0 cyclobenzaprine 10 mg tablet 10 mg PO TID PRN (Reason: muscle spasm) Qty: 12 RF: 0 lidocaine [Lidoderm] 5 % adhesive patch,medicated 1 patch topical DAILY Qty: 15 RF: 0 naproxen 500 mg tablet 500 mg PO BID PRN (Reason: pain) Qty: 20 RF: 0 paroxetine HCl 40 mg tablet 40 mg PO DAILY RF: 0 fluticasone propionate 50 mcg/actuation spray,suspension 2 spray intranasal DAILY RF: 0 loratadine 10 mg tablet 10 mg PO DAILY RF: 0 hydroxyzine HCl 50 mg tablet 50 mg PO TID RF: 0 naproxen 500 mg tablet 500 mg PO Q12H PRN (Reason: pain) RF: 0 famotidine 20 mg tablet 20 mg PO BEDTIME RF: 0
[2021-08-11 17:06] LABS: UPreg QC Valid YES; Urine Pregnancy NEGATIVE (NEGATIVE)
[2021-08-11] MEDS: 0.9 % Sodium Chloride 1,000 ML 999 ML IVCONT (17:24)
[2021-08-11] MEDS: SUMAtriptan succinate 100 MG TABLET PO (17:25)
[2021-08-11] MEDS: Metoclopramide HCl 10 MG/2 ML VIAL IVPUSH (17:25)
[2021-08-11 17:32] LABS: Appearance Urine HAZY; Color Urine YELLOW; Glucose Urine UA NEG (NEG); Leukocyte Esterase Urine NEG (NEG); Nitrite Urine NEG (NEG); Specific Gravity - Urine 1.025 (1.005-1.025); Urine Blood NEG (NEG); Urine Ketones NEG (NEG); Urine Protein NEG (NEG-TRACE)
[2021-08-11 17:55] LABS: D Dimer High Sensitivity < 150 NG/ML
== END 2021-08-11 18:53 | disposition home or self-care (01) ==
PROVIDERS: Physician Assistant Medical; Emergency Provider Emergency Medicine; PCP Student in an Organized Health Care Education/Training Program
DX: R07.89 Other chest pain (principal); G43.909 Migraine, unspecified, not intractable, without status migrainosus; R53.81 Other malaise; F17.200 Nicotine dependence, unspecified, uncomplicated; Z86.16 Personal history of COVID-19
CPT/HCPCS: 36415; 71046; 80053; 81003; 81025; 83690; 83735; 84484; 85025; 85379; 85610; 93005; 96361; 96374; 99284; J2765

== ENCOUNTER 2021-08-28 12:21 | Emergency (ER) | payer MEDICARE, MEDICAID, SELFPAY ==
--- NOTE | ~2021-08-28 | XR_ITS ---
EXAMINATION: XR ABDOMEN KUB CLINICAL INDICATION: Constipation COMPARISON: None TECHNIQUE: AP view of the abdomen. FINDINGS: The bowel gas pattern is normal with no evidence of ileus or obstruction. No unusual soft tissue calcifications are noted. The bones are unremarkable. Surgical clips in the right upper quadrant consistent with prior cholecystectomy. XR/XR KUB IMPRESSION: Unremarkable examination.
[2021-08-28 12:45] VITALS: BP 109/75; PULSE 69; RESP 17; TEMP 36.6; BMI 27.6
--- NOTE | 2021-08-28 18:52 | ED_ITS ---
HPI - Abdominal Pain General Chief Complaint: Abdominal Pain Stated Complaint: lower abd pain Time Seen by Provider: 08/28/21 18:47 Source: patient Mode of arrival: ambulatory Limitations: no limitations History of Present Illness HPI narrative: Patient comes emergency room complaining of burning with urination. It has been going on for approximately 2 weeks. Patient States that her urine looks darker than usual. Denies seeing any blood. Patient denies fever chills. Patient states that she has had this pain intermittently for years now. Around this time last year, patient had an evaluation by OBGYN. Tony barnett also complaining of constipation, states she has not moved her bowels in couple of days. Patient states that she has no abdominal pain, only the suprapubic discomfort with and after urination. Patient denies abdominal pain, no flank pain, no fever chills, no vaginal discharge. Related Data Home Medications Medication Instructions Recorded Confirmed famotidine 20 mg tablet 20 mg PO BEDTIME 08/09/20 02/04/21 fluticasone propionate 50 2 spray INTRANASAL DAILY 08/09/20 02/04/21 mcg/actuation nasal spray,suspension hydroxyzine HCl 50 mg tablet 50 mg PO TID 08/09/20 02/04/21 loratadine 10 mg tablet 10 mg PO DAILY 08/09/20 02/04/21 naproxen 500 mg tablet 500 mg PO Q12H PRN 08/09/20 02/04/21 paroxetine HCl 40 mg tablet 40 mg PO DAILY 08/09/20 02/04/21 Previous Rx's Medication Instructions Recorded omeprazole 20 mg capsule,delayed 20 mg PO BID 30 Days #60 cap 07/25/20 release tramadol 50 mg tablet 50 mg PO TID PRN 3 Days #9 tab 11/05/20 cyclobenzaprine 10 mg tablet 10 mg PO TID PRN #14 tab 11/15/20 oxycodone 5 mg tablet 5 mg PO Q6H PRN #14 tab 11/15/20 cyclobenzaprine 10 mg tablet 10 mg PO TID PRN #12 tab 04/08/21 lidocaine 5 % topical patch 1 patch TOPICAL DAILY #15 ea 04/08/21 (Lidoderm) naproxen 500 mg tablet 500 mg PO BID PRN #20 tab 04/08/21 lorazepam 1 mg tablet 1 mg PO ONCE PRN #2 tab 04/25/21 metoclopramide HCl 5 mg tablet 5 mg PO DAILY PRN #7 tab 08/11/21 (Reglan) sumatriptan succinate 50 mg tablet 50 mg PO Q2-4H PRN #10 tab 08/11/21 polyethylene glycol 3350 17 17 g PO BID #238 g 08/28/21 gram/dose oral powder (Miralax) Allergies Allergy/AdvReac Type Severity Reaction Status Date / Time ibuprofen AdvReac Severe GI upset Verified 04/08/21 16:30 Review of Systems Review of Systems Constitutional : No Weight loss, No Fever, complaining of Chills, No Night Sweats, No Fatigue, No Malaise ENT/Mouth : No Hearing loss, No Ear Pain, No Nasal Congestion, No Sinus Pain, No Hoarseness, No sore throat, No Rhinorrhea, No Swallowing Difficulty Eyes: No Eye Pain, No Swelling, No Redness, No Foreign Body, No Discharge, No Vision Changes Cardiovascular : No Chest Pain, No SOB, No Dyspnea on Exertion, No Orthopnea, No Edema, No Palpitations Respiratory : No Cough, No Sputum, No Wheezing, No Smoke Exposure, No Dyspnea Gastrointestinal : No Nausea, No Vomiting, No Diarrhea, complaining of Constipation, complaining of suprapubic discomfort, No Hematochezia, No Melena Genitourinary : no irregular bleeding, complaining of Dysuria, No Urinary Frequency, No Hematuria, No Urinary Incontinence, No Urgency, No Flank Pain, No Urinary Flow Changes, No Hesitancy Musculoskeletal : No joint pain, No Myalgias, No Joint Swelling Skin : No Skin Lesions, No rash Neuro : No Weakness, No Numbness, No Paresthesias, No Loss of Consciousness, No Dizziness, No Headache Psych : No Anxiety/Panic, No Depression, No SI/HI/AH/VH, No Social Issues, Heme/Lymph: No Bruising, No Bleeding,No Lymphadenopathy Endocrine : No Polyuria, No Polydipsia, No Temperature Intolerance Physical Exam Vital Signs: Vital Signs: Last Vital Signs Temp 98.7 F 08/28/21 18:58 Pulse 53 08/28/21 18:58 Resp 16 08/28/21 18:58 BP 114/76 08/28/21 18:58 Pulse Ox 100 08/28/21 18:58 BMI result Body Mass Index 27.6 Const: Other: Appearance: Alert. Oriented X3. No acute distress. Well- appearing Eyes: Pupils equal, round and reactive to light. ENT: Pharynx normal. Neck: Normal inspection. Neck supple. No lymph nodes noted. No crepitus CVS: Normal heart rate and rhythm. Pulses normal. Normal S1 and S2 Respiratory: No respiratory distress. Breath sounds normal. No Wheezing. No rales Abdomen: Soft , mild discomfort on palpation in suprapubic area. No rigidity. No distention. Skin: Skin warm and dry. Normal skin color. Normal skin turgor. Extremities: No lower extremity edema. No lower extremity edema. No Lacer ations. No Rash Neuro: Oriented X 3. No motor deficit. No sensory deficit. Moving all extermities. No slurred speech. Course Course Course Narrative: I discussed the labs with the patient. Patient does not have a UTI. Patient states that she has urinated, and it burned and her bladder is spasming. Patient was given the 1st dose of phenazopyridine. I discussed with the patient that if she has ongoing symptoms, she may need a cystoscopy. Patient likely having cystitis. MDM - Abdominal Pain Lab Data Labs: Lab Results 08/28/21 08/28/21 Range/Units 18:57 18:57 Urine Color YELLOW Urine Appearance CLEAR Urine pH 6.0 (5.0-8.0) Ur Specific [place] 1.025 (1.005-1.025) Urine Protein NEG (NEG-TRACE) MG/DL Urine Glucose (UA) NEG (NEG) MG/DL Urine Ketones NEG (NEG) MG/DL Urine Blood NEG (NEG) Urine Nitrite NEG (NEG) Ur Leukocyte Esterase NEG (NEG) Urine Test NEGATIVE (NEGATIVE) Discharge Plan Discharge Clinical Impression: Cystitis, Constipation Patient Disposition: Home, Self-Care Instructions: Constipation (ED), Pelvic Pain in Women (ED) Additional Instructions: Please follow-up with your primary care physician tomorrow. If you have any worsening or new symptoms, please return to the emergency room or call 911 Prescriptions: New polyethylene glycol 3350 [Miralax] 17 gram/dose powder 17 g PO BID Qty: 238 RF: 0 No Action omeprazole 20 mg capsule,delayed release(DR/EC) 20 mg PO BID 30 Days Qty: 60 RF: 3 lorazepam 1 mg tablet 1 mg PO ONCE PRN (Reason: painful procedure) Qty: 2 RF: 0 tramadol 50 mg tablet 50 mg PO TID PRN (Reason: pain) 3 Days Qty: 9 RF: 0 oxycodone 5 mg tablet 5 mg PO Q6H PRN (Reason: pain) Qty: 14 RF: 0 cyclobenzaprine 10 mg tablet 10 mg PO TID PRN (Reason: muscle spasm) Qty: 14 RF: 0 cyclobenzaprine 10 mg tablet 10 mg PO TID PRN (Reason: muscle spasm) Qty: 12 RF: 0 lidocaine [Lidoderm] 5 % adhesive patch,medicated 1 patch topical DAILY Qty: 15 RF: 0 naproxen 500 mg tablet 500 mg PO BID PRN (Reason: pain) Qty: 20 RF: 0 sumatriptan succinate 50 mg tablet 50 mg PO Q2-4H PRN (Reason: migraine headache) Qty: 10 RF: 0 metoclopramide HCl [Reglan] 5 mg tablet 5 mg PO DAILY PRN (Reason: nausea and vomiting) Qty: 7 RF: 0 paroxetine HCl 40 mg tablet 40 mg PO DAILY RF: 0 fluticasone propionate 50 mcg/actuation spray,suspension 2 spray intranasal DAILY RF: 0 loratadine 10 mg tablet 10 mg PO DAILY RF: 0 hydroxyzine HCl 50 mg tablet 50 mg PO TID RF: 0 naproxen 500 mg tablet 500 mg PO Q12H PRN (Reason: pain) RF: 0 famotidine 20 mg tablet 20 mg PO BEDTIME RF: 0 PMFSH Past Medical History Medical History Anxiety Cyst of left breast (~2008) Herniated intervertebral disc Surgical History H/O section H/O left breast biopsy (10/27/11) History of esophagogastroduodenoscopy (EGD) Hx of colonoscopy Hx of laparoscopy S/P breast biopsy Status post appendectomy Thyroid nodule Family History Family History Father Suicide Mother Fibrous breast lumps H/O thyroidectomy Diabetes Brother Collapse of both lungs Kidney problem H/O thyroidectomy Son Family history of Klinefelter syndrome Maternal Grandmother Stomach cancer Maternal Grandfather Lung cancer Family/Other Breast cancer Depression Maternal Aunt Ovarian cancer Paternal Uncle History of open heart surgery Maternal Uncle Suicide Social History Social History Household Members: Children Household Members Other:: 1 daughter, 2 sons Alcohol intake: current Alcohol intake frequency: holidays/special occasions only Cigarette Packs Per Day: 0.75 Cigarettes Per Day: 15.0 Advance Directives: No Advance Directives Information Provided: No Patient : No
[2021-08-28 18:58] VITALS: BP 114/76; PULSE 53; RESP 16; TEMP 37.1; O2SAT 100
[2021-08-28 19:11] LABS: Appearance Urine CLEAR; Color Urine YELLOW; Glucose Urine UA NEG (NEG); Leukocyte Esterase Urine NEG (NEG); Nitrite Urine NEG (NEG); Specific Gravity - Urine 1.025 (1.005-1.025); Urine Blood NEG (NEG); Urine Ketones NEG (NEG); Urine Protein NEG (NEG-TRACE)
[2021-08-28 19:20] LABS: UPreg QC Valid YES; Urine Pregnancy NEGATIVE (NEGATIVE)
== END 2021-08-28 20:33 | disposition home or self-care (01) ==
PROVIDERS: Emergency Provider Emergency Medicine; PCP Student in an Organized Health Care Education/Training Program
DX: N30.00 Acute cystitis without hematuria (principal); K59.00 Constipation, unspecified
CPT/HCPCS: 74018; 81003; 81025; 99283

== ENCOUNTER 2021-09-03 10:24 | Outpatient (REF) | payer MEDICARE, MEDICAID, SELFPAY ==
[2021-09-03 14:03] LABS: CT PCR NOT DETECTED (Not Detect.); NG PCR NOT DETECTED (Not Detect.)
== END 2021-09-03 10:25 | disposition home or self-care (01) ==
LOC: HO.LAB 10:24
PROVIDERS: PCP Student in an Organized Health Care Education/Training Program; Visit Provider Obstetrics & Gynecology
DX: R10.2 Pelvic and perineal pain (principal); R31.29 Other microscopic hematuria; F17.210 Nicotine dependence, cigarettes, uncomplicated
CPT/HCPCS: 87086; 87491; 87591; 99212

== ENCOUNTER 2021-09-18 09:59 | Outpatient (REF) | payer MEDICARE, MEDICAID, SELFPAY ==
--- NOTE | ~2021-09-18 | US_ITS ---
EXAMINATION: US PELVIS CLINICAL INFORMATION: Pelvic and perineal pain COMPARISON: 08/13/2020 TECHNIQUE: Ultrasound of the pelvis is performed using both transabdominal and transvaginal transducers along with Doppler. Transvaginal imaging is performed due to inadequate visualization transabdominally. FINDINGS: Evaluation to the limited as the patient did not tolerate the transvaginal exam well. Uterus: The uterus is anteverted and measures 5.6 x 3.3 x 5.2 cm. The double wall endometrial thickness is 0.2 mm. The uterus is smooth in contour and has normal myometrial echogenicity. No visible fibroid. Adnexa: Neither ovary was seen. There is no pelvic ascites or fluid collection. US/US pelvic and transvaginal IMPRESSION: Limited but unremarkable pelvic ultrasound.
== END 2021-09-18 10:00 | disposition home or self-care (01) ==
LOC: HO.US 09:59
PROVIDERS: Visit Provider Obstetrics & Gynecology
DX: R10.2 Pelvic and perineal pain (principal); R31.29 Other microscopic hematuria
CPT/HCPCS: 76830; 76856; 99212

== ENCOUNTER → 2021-10-02 10:28 | Outpatient (BNVA) | payer MEDICARE, MEDICAID, SELFPAY | PROVIDERS: PCP Student in an Organized Health Care Education/Training Program; Visit Provider Obstetrics & Gynecology | DX: R10.2 Pelvic and perineal pain (principal) | CPT/HCPCS: Q3014 ==

== ENCOUNTER → 2021-10-21 15:02 | Outpatient (BNVA) | payer MEDICARE, MEDICAID, SELFPAY | PROVIDERS: PCP Student in an Organized Health Care Education/Training Program; Visit Provider Nurse Practitioner Family | DX: M53.3 Sacrococcygeal disorders, not elsewhere classified (principal); M79.7 Fibromyalgia; M25.50 Pain in unspecified joint; M54.16 Radiculopathy, lumbar region; F32.9 Major depressive disorder, single episode, unspecified | CPT/HCPCS: 99212 ==

== ENCOUNTER 2021-11-04 13:58 | Outpatient (REF) | payer MEDICARE, MEDICAID, SELFPAY ==
--- NOTE | ~2021-11-04 | MR_ITS ---
EXAMINATION: MR LUMBAR SPINE WITHOUT CONTRAST CLINICAL INFORMATION: Radiculopathy, lumbar region. COMPARISON: Plain films of the lumbar spine 11/15/2020. Report of MRI scan of the lumbar spine 02/15/2009 which described some spondylosis at L4-L5 and L5-S1. TECHNIQUE: MRI of the lumbar spine was obtained using routine sequences without contrast. FINDINGS: VERTEBRAL BODIES AND PARASPINAL STRUCTURES: There is a minimal levoscoliosis. There is a slight retrolisthesis of L4 on L5. There is mild loss of intervertebral disc height and signal from the discs at the level of L4-L5. There are mild degenerative endplate contour changes with minimal edematous signal at this level and there are Schmorl's nodes at the adjacent endplates. Vertebral body heights are maintained and no fractures are demonstrated. There is an area of increased T1 and T2 signal in the body of L1 consistent with a hemangioma. Overall, marrow signal is homogenous. The visualized retroperitoneal and pelvic structures are unremarkable. CONUS MEDULLARIS AND CAUDA EQUINA: Normal, terminating at the level of L1. The lower thoracic spinal cord appears normal. The cauda equina nerve roots and filum terminale appear normal. SPINAL LEVELS: L1-L2: The facet joints appear normal bilaterally. Disc contour is normal. There is no central stenosis or foraminal narrowing. L2-L3: The facet joints appear normal bilaterally. Disc contour is normal. There is no central stenosis or foraminal narrowing. L3-L4: The facet joints appear normal bilaterally. Disc contour is normal. There is no central stenosis or foraminal narrowing. L4-L5: There is moderate bilateral facet arthropathy. There is a posterior disc protrusion extending into the neural foramina bilaterally, more prominent on the right and there may be impingement on the exiting right L4 nerve root. The posterior protrusion has an annular fissure and there is distortion of the ventral thecal sac with narrowing of the bilateral subarticular recesses. There is mild to moderate central stenosis. L5-S1: There is mild bilateral facet arthropathy. There is a small posterior disc protrusion with an annular fissure without mass effect on the thecal sac. There is no central stenosis or neural foramina are patent bilaterally. MR/MR lumbar spine wo con IMPRESSION: 1. At L4-L5 there is a posterior disc protrusion extending into the neural foramina, and there may be impingement on the exiting right L4 nerve root. There is narrowing of the bilateral subarticular recesses and [id number] central stenosis. 2. There is a small posterior disc protrusion at L5-S1. There is no central stenosis or foraminal narrowing at this level.
== END 2021-11-04 13:59 | disposition home or self-care (01) ==
LOC: HO.MRI 13:58
PROVIDERS: Visit Provider Nurse Practitioner Family
DX: M54.16 Radiculopathy, lumbar region (principal)
CPT/HCPCS: 72148

== ENCOUNTER 2021-11-10 09:38 | Outpatient (REF) | payer MEDICARE, MEDICAID, SELFPAY ==
--- NOTE | ~2021-11-10 | CT_ITS ---
EXAMINATION: CT ABDOMEN AND PELVIS WITHOUT AND WITH CONTRAST CLINICAL INFORMATION: Pelvic and perineal pain. COMPARISON: Ultrasound pelvis 09/18/2021. CT abdomen and pelvis without contrast 04/17/2019. TECHNIQUE: Multidetector volumetric imaging was performed of the abdomen and pelvis before and after the IV administration of 85 mL of Omnipaque 350 intravenous contrast. Sagittal and coronal reformatted images were obtained on the technologist's workstation. This CT examination was performed using dose optimization techniques as appropriate, variously including the following: *Automated exposure control *Adjustment of mA and/or kV according to patient size (this includes techniques or standardized protocols for targeted exams where dose is matched to indication/reason for exam; i.e. extremities or head) *Use of iterative reconstruction technique DLP: 807 mGy-cm FINDINGS: LUNG BASES: The visualized lung bases are unremarkable. The heart size is normal. LIVER, GALLBLADDER, AND BILIARY TREE: The liver is normal in size, shape, and attenuation. There is a 1.9 cm hypodense nonenhancing lesion segment 6. No additional lesions seen. No intrahepatic ductal dilatation. The gallbladder has been surgically removed. PANCREAS: Unremarkable. SPLEEN: Unremarkable. ADRENAL GLANDS: Unremarkable. KIDNEYS AND URETERS: The kidneys are normal in size, shape, and attenuation. No hydronephrosis, hydroureter, or calculi seen. No perinephric stranding. There is a 5 mm hypodense lesion upper pole right kidney, probable cyst. BLADDER: Unremarkable. GASTROINTESTINAL TRACT: Scattered stool and gas seen in a nondistended colon. The small bowel loops are normal caliber. Appendix is not visualized. ABDOMINAL WALL: No significant hernia is appreciated. LYMPH NODES: Normal. VASCULAR: Unremarkable. PELVIC VISCERA: There is no free air or free fluid. The uterus is anteverted and unremarkable. No adnexal mass seen. There is no soft tissue mass, gas or fluid collection in the ischiorectal fossa or the perineum. OSSEOUS STRUCTURES: Mild degenerative spondylosis L4-L5 disc level. No lytic or sclerotic process seen. CT/CT abdomen pelvis wo/w con IMPRESSION: No acute intra-abdominal process seen. Especially, there is no abnormality in the lower pelvis or the perineal region. Fleischner guidelines were followed.
[2021-11-10 10:32] LABS: Blood Urea Nitrogen 10 mg/dL (9-16); Estimated Glomerular Filt Rate > 60
== END 2021-11-10 09:39 | disposition home or self-care (01) ==
LOC: HO.CT 09:38
PROVIDERS: Visit Provider Obstetrics & Gynecology
DX: R10.2 Pelvic and perineal pain (principal)
CPT/HCPCS: 36415; 74178; 82565; 84520

== ENCOUNTER → 2021-11-26 11:54 | Outpatient (BNVA) | payer MEDICARE, MEDICAID, SELFPAY | PROVIDERS: Visit Provider Obstetrics & Gynecology | DX: Z13.89 Encounter for screening for other disorder (principal) | CPT/HCPCS: Q3014 ==

== ENCOUNTER → 2021-11-27 09:30 | Outpatient (BNVA) | payer MEDICARE, MEDICAID, SELFPAY | PROVIDERS: Visit Provider Internal Medicine Gastroenterology | DX: K21.9 Gastro-esophageal reflux disease without esophagitis (principal); R10.9 Unspecified abdominal pain; R12 Heartburn; J45.909 Unspecified asthma, uncomplicated; M79.7 Fibromyalgia; F17.210 Nicotine dependence, cigarettes, uncomplicated; F41.8 Other specified anxiety disorders; Z90.49 Acquired absence of other specified parts of digestive tract; Z88.8 Allergy status to other drugs, medicaments and biological substances; Z79.899 Other long term (current) drug therapy | CPT/HCPCS: Q3014 ==

== ENCOUNTER 2021-12-02 10:24 | Outpatient (REF) | payer MEDICARE, MEDICAID, SELFPAY ==
[2021-12-02 10:42] LABS: MANUAL DIFF FLAG NO
[2021-12-02 11:54] LABS: Basophils Percent Auto 0.4 % (0-2); Eosinophils Absolute Auto 0.1 X10*3/uL (0.0-0.4); Eosinophils Percent Auto 2.6 % (0-4); Hematocrit 40.7 % (37.0-47.0); Hemoglobin 12.4 g/dl (12.0-16.0); Imm Gran Abs Auto 0.01 X10*3/uL (0.00-0.03); Imm Gran Pct Auto 0.2 % (0.0-0.4); Lymphocytes Absolute Auto 1.8 X10*3/uL (1.2-4.9); Lymphocytes Percent Auto 33.6 % (20-40); Mean Corpuscular HGB Conc 30.5 g/dl (31.0-35.0); Mean Corpuscular Hemoglobin 27.7 pg (27.0-33.0); Mean Corpuscular Volume 91.1 fL (80.0-98.0); Mean Platelet Volume 10.9 fL (9.4-12.3); Monocytes Absolute Auto 0.4 X10*3/uL (0.1-1.2); Monocytes Percent Auto 7.1 % (2-11); Neutrophils Percent Auto 56.1 % (45-73); Platelet Count 261 X10*3/uL (160-400); Red Blood Count 4.47 X10*6/uL (4.20-5.50); White Blood Count 5.4 X10*3/uL (4.8-10.8)
[2021-12-02 12:27] LABS: Alanine Aminotransferase 16 U/L (0-31); Albumin Level 4.5 g/dL (3.5-5.0); Alkaline Phosphatase 132 U/L (39-117); Anion Gap 11 (12-20); Aspartate Amino Transferase 16 U/L (5-31); Bilirubin Total 0.7 mg/dL (0.0-1.0); Blood Urea Nitrogen 13 mg/dL (9-16); C Reactive Protein 0.12 mg/dL (< or = 0.50); Calcium 10.8 mg/dL (8.4-10.2); Carbon Dioxide 22 mmol/L (22-29); Chloride 110 mmol/L (96-108); Estimated Glomerular Filt Rate > 60; Glucose Random 100 mg/dL (60-115); Lipase 24 U/L (8-78); Potassium 4.1 mmol/L (3.3-5.1); Sodium 139 mmol/L (135-145); Total Protein 6.9 g/dL (6.5-8.0)
[2021-12-02 12:42] LABS: Vitamin D 25-OH Total 13.9 ng/mL (>30)
[2021-12-02 12:51] LABS: Folate 12.5 ng/mL (> or = 4.0); Vitamin B12 212 pg/mL (200-900)
[2021-12-02 18:36] LABS: CDiff Gene PCR POSITIVE (Negative)
[2021-12-02 19:15] LABS: CDIFF Internal ctrl Dots and bkg OK (V); CDiff Toxin Negative (Negative)
== END 2021-12-02 10:25 | disposition home or self-care (01) ==
LOC: HO.LAB 10:24
PROVIDERS: PCP Student in an Organized Health Care Education/Training Program; Visit Provider Internal Medicine Gastroenterology
DX: R10.9 Unspecified abdominal pain (principal); R35.0 Frequency of micturition; K21.9 Gastro-esophageal reflux disease without esophagitis; N28.1 Cyst of kidney, acquired
CPT/HCPCS: 36415; 51798; 80053; 82306; 82607; 82746; 83690; 85025; 86140; 87324; 87493; 99202

== ENCOUNTER 2021-12-12 18:48 | Outpatient (REF) | payer MEDICARE, MEDICAID, SELFPAY ==
--- NOTE | ~2021-12-12 | MR_ITS ---
EXAMINATION: MR ABDOMEN WITHOUT AND WITH CONTRAST CLINICAL INFORMATION: Follow up liver lesion. COMPARISON: Previous abdominal ultrasound March [address] of the abdomen and pelvis, most recent October 2021. TECHNIQUE: MR abdomen was performed without and with use of 7.5 mL intravenous Gadavist gadolinium contrast. Postcontrast images are performed in multiphase dynamic sequences. Imaging was performed in 3 planes. FINDINGS: LUNG BASES: The visualized lung bases are unremarkable. LIVER, GALLBLADDER, AND BILIARY TREE: The liver is normal in size, smooth in contour, and normal in signal. There is a 1.1 x 1.7 cm lesion in the right lobe of the liver. This is low signal on T1-weighted sequences, high signal on T2-weighted sequences and demonstrates delayed peripheral puddling enhancement suggestive of a benign hemangioma. There is a second small 2 x 5 mm lesion in the posterior segment of the right lobe of the liver. This is appreciated on axial T2 fat-saturated sequences only (axial image 8, series 7). This is not well identified on other sequences. This may be low signal on precontrast LAVA and gradient echo sequences (axial image 72, series 8 and axial image 8 series 6). This is not reliably identified on postcontrast sequences. This may represent a small cyst or hemangioma. No other focal liver lesion is seen. The gallbladder is not identified and has presumably been removed. PANCREAS: Unremarkable. SPLEEN: Normal. ADRENAL GLANDS: Normal. KIDNEYS AND URETERS: The kidneys are normal in size, shape, and enhance symmetrically. No hydronephrosis. There is a 4 mm probable cyst in the upper pole of the right kidney. No perinephric stranding. GASTROINTESTINAL TRACT: No bowel obstruction. There is a large amount of food debris seen in the stomach. No ascites or fluid collection. ABDOMINAL WALL: No significant hernia is appreciated. LYMPH NODES: No lymphadenopathy. VASCULAR: Unremarkable. OSSEOUS STRUCTURES: Marrow signal normal. MR/MR abdomen wo/w con IMPRESSION: 1.1 x 1.7 cm hemangioma in the right lobe of the liver. A second small 2 x 5 mm lesion in the right lobe of the liver questionable for a cyst or hemangioma.
== END 2021-12-12 18:49 | disposition home or self-care (01) ==
LOC: HO.MRI 18:48
PROVIDERS: Visit Provider Internal Medicine Gastroenterology
DX: R93.89 Abnormal findings on diagnostic imaging of other specified body structures (principal)
CPT/HCPCS: 74183; A9585

== ENCOUNTER → 2021-12-25 07:38 | Outpatient (BNVA) | payer MEDICARE, MEDICAID, SELFPAY | PROVIDERS: PCP Nurse Practitioner Family; Referring Provider Nurse Practitioner Family; Visit Provider Internal Medicine Gastroenterology | DX: R93.89 Abnormal findings on diagnostic imaging of other specified body structures (principal); K21.9 Gastro-esophageal reflux disease without esophagitis; R10.9 Unspecified abdominal pain; R68.81 Early satiety; E55.9 Vitamin D deficiency, unspecified | CPT/HCPCS: 99212 ==

== ENCOUNTER → 2022-02-10 08:05 | Outpatient (REF) | payer MEDICARE, MEDICAID, SELFPAY ==
--- NOTE | ~2022-02-10 | NM_ITS ---
EXAMINATION: NM RADIONUCLIDE SOLID FOOD GASTRIC EMPTYING 3-HOUR STUDY CLINICAL INFORMATION: Early satiety. COMPARISON: MR abdomen 12/12/2021. TECHNIQUE: A standard meal consisting of 4 oz of Egg Beaters brand tagged with 0.84 mCi Tc-99m Sulfur Colloid, 8 oz water and 1 slice of toast with jelly was administered orally to the patient. Images were obtained using a dual head gamma camera in the anterior and posterior projections over of the stomach immediately post ingestion and at hourly intervals up to 3 hours post ingestion. Images were not obtained at 4 hours due to the minimal retention at 3 hours. The anterior and posterior counts at each time interval were averaged using the geometric mean and expressed as percentage of the immediate post ingestion counts. FINDINGS: There is good visualization of activity in the stomach immediately post ingestion. As the study progresses, there is good clearance of activity from the stomach and visualization of progressively increasing small bowel activity. By the end of the study, there is almost no retention noted in the stomach. Retention in the stomach at each time interval was: 1 hour 35% (normal 37%-90%) 2 hours 4% (normal 30%-60%) 3 hours 1% 4 hours (Not Obtained) (normal 0%-10%) NM/NM gastric emptying study IMPRESSION: Normal solid food gastric emptying study.
== END ==
LOC: HO.NUCMED 08:05
PROVIDERS: PCP Student in an Organized Health Care Education/Training Program; Visit Provider Internal Medicine Gastroenterology
DX: R68.81 Early satiety (principal)
CPT/HCPCS: 78264; A9541

== ENCOUNTER 2022-03-25 10:54 | Outpatient (REF) | payer MEDICARE, MEDICAID, SELFPAY ==
--- NOTE | ~2022-03-25 | MM_ITS ---
EXAMINATION: MM SCREENING DIGITAL BREAST TOMOSYNTHESIS, BILATERAL CLINICAL INFORMATION: Screening. Asymptomatic. The lifetime risk of breast cancer based on the Tyrer-Cuzick Model is 8%. COMPARISON: Mammography: 03/21/2021, 03/15/2020, 03/09/2019 TECHNIQUE: Digital breast tomosynthesis is performed in both the craniocaudal and mediolateral oblique views along with computer-aided detection (CAD). Synthesized 2D images are generated from the tomosynthesis. FINDINGS: There are scattered areas of fibroglandular density (ACR BI-RADS breast composition Category b). Parenchymal pattern is similar to prior exams. There is no developing density or interval mass or architectural abnormality. There are scattered benign round calcifications. Biopsy clip markers again seen central left and posterior 9:30 o'clock right breast. The axilla and skin contours are unremarkable. MM/MM tomosynthesis screening BI IMPRESSION: No mammographic evidence of malignancy. ASSESSMENT: BI-RADS 1: Negative RECOMMENDATION: Routine annual mammography screening. This patient's information was entered into a reminder system with a target due date for their next mammogram.
[2022-03-25 12:10] LABS: Hematocrit 41.2 % (37.0-47.0); Hemoglobin 12.8 g/dl (12.0-16.0); Mean Corpuscular HGB Conc 31.1 g/dl (31.0-35.0); Mean Corpuscular Hemoglobin 28.3 pg (27.0-33.0); Mean Corpuscular Volume 90.9 fL (80.0-98.0); Mean Platelet Volume 10.9 fL (9.4-12.3); Platelet Count 261 X10*3/uL (160-400); Red Blood Count 4.53 X10*6/uL (4.20-5.50); Red Cell Distribution Width 13.2 % (11.0-16.0); White Blood Count 5.7 X10*3/uL (4.8-10.8)
[2022-03-25 12:14] LABS: INTERNATIONAL NORM RATIO 0.9 (0.9-1.1); Prothrombin Time 9.9 SEC (10.0-13.1)
[2022-03-25 12:17] LABS: Partial Thromboplastin Time 27.7 SEC (26.0-36.4)
[2022-03-30 22:42] LABS: Vitamin C 0.4 mg/dL (0.3-2.7)
== END 2022-03-25 10:55 | disposition home or self-care (01) ==
LOC: HO.MAMMO 10:54
PROVIDERS: Absent Provider Family Medicine; PCP Student in an Organized Health Care Education/Training Program; Visit Provider Student in an Organized Health Care Education/Training Program
DX: Z12.31 Encounter for screening mammogram for malignant neoplasm of breast (principal); R20.0 Anesthesia of skin; R23.3 Spontaneous ecchymoses
CPT/HCPCS: 36415; 77063; 77067; 82180; 85027; 85610; 85730

== ENCOUNTER 2022-04-20 10:25 | Outpatient (REF) | payer MEDICARE, MEDICAID, SELFPAY ==
--- NOTE | ~2022-04-20 | US_ITS ---
EXAMINATION: US RETROPERITONEAL LIMITED (RENAL ONLY) CLINICAL INFORMATION: Cyst of kidney, acquired. COMPARISON: MRI abdomen 12/12/2021. CT abdomen and pelvis 11/10/2021. X-ray abdomen KUB 08/28/2021. Ultrasound abdomen 04/19/2019. TECHNIQUE: Real-time imaging of the kidneys. FINDINGS: RIGHT KIDNEY: 10.8 x 4.3 x 5.7 cm (SAG x AP x TRV). The kidney is normal in size, contour, and echogenicity. Renal cortical thickness is normal. No calculi or focal parenchymal lesions. No hydronephrosis. Small 4 to 5 mm questioned cyst in the upper pole right kidney is not appreciated by ultrasound. LEFT KIDNEY: 10.7 x 5.4 x 4.8 cm (SAG x AP x TRV). The kidney is normal in size, contour, and echogenicity. Renal cortical thickness is normal. No calculi or focal parenchymal lesions. No hydronephrosis. US/US renal BI IMPRESSION: Normal renal ultrasound. No cyst seen by ultrasound.
== END 2022-04-20 10:26 | disposition home or self-care (01) ==
LOC: HO.HMGCX 10:25
PROVIDERS: PCP Student in an Organized Health Care Education/Training Program
DX: N28.1 Cyst of kidney, acquired (principal)
CPT/HCPCS: 76775

== ENCOUNTER → 2022-05-14 10:00 | Outpatient (BNVA) | payer MEDICARE, MEDICAID, SELFPAY | PROVIDERS: PCP Student in an Organized Health Care Education/Training Program; Referring Provider Nurse Practitioner Family; Visit Provider Internal Medicine Gastroenterology | DX: K21.9 Gastro-esophageal reflux disease without esophagitis (principal); R68.81 Early satiety; R10.9 Unspecified abdominal pain; R13.10 Dysphagia, unspecified; R30.0 Dysuria; E55.9 Vitamin D deficiency, unspecified | CPT/HCPCS: 99212 ==

== ENCOUNTER → 2022-06-29 13:53 | Outpatient (BNVA) | payer MEDICARE, MEDICAID, SELFPAY | PROVIDERS: PCP Student in an Organized Health Care Education/Training Program; Visit Provider Urology | DX: R10.2 Pelvic and perineal pain (principal); R31.29 Other microscopic hematuria; F17.210 Nicotine dependence, cigarettes, uncomplicated | CPT/HCPCS: Q3014 ==

== ENCOUNTER 2023-01-03 13:37 | Emergency (ER) | payer OTHER, SELFPAY ==
[2023-01-03 13:44] VITALS: BP 139/86; PULSE 100; RESP 16; TEMP 36.8; O2SAT 100; BMI 27.2
[2023-01-03 14:05] LABS: COVID-19 Test Positive (Negative); IDNOW Serial# BCCEAD1C
--- NOTE | 2023-01-03 14:31 | ED.URI ---
HPI - URI/Sore Throat General Chief Complaint: Upper Respiratory Symptoms <ANGELINA Morrison - Last Filed: 01/03/23 14:37> Stated Complaint: 01/03 covid positive/ sinus <ANGELINA Morrison Last Filed: 01/03/23 14:37> Time Seen by Provider: 01/03/23 13:49 <ANGELINA Morrison Last Filed: 01/03/23 14:37> Source: patient <ANGELINA Morrison Last Filed: 01/03/23 14:37> Mode of arrival: ambulatory <ANGELINA Morrison Last Filed: 01/03/23 14:37> Limitations: no limitations <ANGELINA Morrison Last Filed: 01/03/23 14:37> History of Present Illness HPI Narrative: She 2-year-old female with history of smoking, lumbar radiculopathy, polyarthralgia, seasonal allergies, anxiety, depression, GERD, fibromyalgia presents to the ER for evaluation of nasal congestion, cough, body aches for the last 4 days. She states she-lead are symptoms were due to seasonal allergies but her coughing was increasing. She then developed body aches. She took a COVID test today at home and it was positive. She denies any shortness of breath or difficulty breathing but she reports her coughing is keeping her up at night. She is fully vaccinated for COVID. She has not been taking her allergy medications, ran out of all of <ANGELINA Morrison - Last Filed: 01/03/23 14:37> 52-year-old female with history of smoking, lumbar radiculopathy, polyarthralgia, seasonal allergies, anxiety, depression, GERD, fibromyalgia presents to the ER for evaluation of nasal congestion, cough, body aches for the last 4 days. She states she-lead are symptoms were due to seasonal allergies but her coughing was increasing. She then developed body aches. She took a COVID test today at home and it was positive. She denies any shortness of breath or difficulty breathing but she reports her coughing is keeping her up at night. She is fully vaccinated for COVID. She has not been taking her allergy medications, ran out of all of <Priya Tse MD - Last Filed: 01/03/23 15:34> MD elicited complaint: cough and nasal congestion <ANGELINA Morrison - Last Filed: 01/03/23 14:37> Pertinent past history: asthma <ANGELINA Morrison - Last Filed: 01/03/23 14:37> Onset (ago): day(s) (4) <ANGELINA Morrison - Last Filed: 01/03/23 14:37> Consistency: progressively worsening <ANGELINA Morrison - Last Filed: 01/03/23 14:37> Description of mucous: clear <ANGELINA Morrison - Last Filed: 01/03/23 14:37> Able to tolerate fluids by mouth: Yes <ANGELINA Morrison - Last Filed: 01/03/23 14:37> Exacerbating factors: nothing <ANGELINA Morrison - Last Filed: 01/03/23 14:37> Relieving factors: nothing <ANGELINA Morrison - Last Filed: 01/03/23 14:37> Associated symptoms: chills, myalgias, headache, rhinorrhea, nasal congestion, sore throat and cough <ANGELINA Morrison - Last Filed: 01/03/23 14:37> Treatments prior to arrival: none <ANGELINA Morrison - Last Filed: 01/03/23 14:37> Related Data Home Medications: Home Medications Medication Instructions Recorded Confirmed fluticasone propionate 50 2 spray intranasal DAILY 08/09/20 05/14/22 mcg/actuation nasal spray,suspension hydroxyzine HCl 50 mg tablet 50 mg PO TID 08/09/20 05/14/22 loratadine 10 mg tablet 10 mg PO DAILY 08/09/20 05/14/22 naproxen 500 mg tablet 500 mg PO Q12H PRN pain 08/09/20 05/14/22 albuterol sulfate 90 mcg/actuation 2 puff PO QID 12/02/21 05/14/22 aerosol inhaler cholecalciferol (vitamin D3) 50 50 mcg PO DAILY 12/02/21 05/14/22 mcg (2,000 unit) tablet famotidine 20 mg tablet 20 mg PO DAILY 12/02/21 05/14/22 celecoxib 200 mg capsule mg PO BID 12/25/21 05/14/22 duloxetine 20 mg capsule,delayed 20 mg PO DAILY 05/14/22 05/14/22 release paroxetine HCl 20 mg tablet 20 mg PO DAILY 05/14/22 05/14/22 paroxetine HCl 20 mg tablet 20 mg PO DAILY 05/14/22 05/14/22 solifenacin 10 mg tablet 10 mg PO DAILY 06/25/22 Previous Rx's Medication Instructions Recorded sumatriptan succinate 50 mg tablet 50 mg PO Q2-4H PRN migraine 08/11/21 headache #10 tabs cyclobenzaprine 5 mg tablet 5 mg PO TID PRN muscle spasm #90 10/21/21 tabs omeprazole 20 mg capsule,delayed 20 mg PO BID 90 days #180 caps 05/14/22 release polyethylene glycol 3350 17 17 g PO BID 30 days #1,020 grams 05/14/22 gram/dose oral powder (Miralax) benzonatate 100 mg capsule 100 mg PO TID PRN cough #30 caps 01/03/23 cetirizine 10 mg capsule (Zyrtec) 10 mg PO DAILY #30 caps 01/03/23 fluticasone propionate 50 1 spray intranasal Q12H #16 grams 01/03/23 mcg/actuation nasal spray,suspension (Children's Flonase Allergy Relief) <ANGELINA Morrison - Last Filed: 01/03/23 14:37> Allergies/Adverse Reactions: Allergies Allergy/AdvReac Type Severity Reaction Status Date / Time ibuprofen AdvReac Severe GI upset Verified 06/29/22 13:51 <ANGELINA Morrison - Last Filed: 01/03/23 14:37> Review of Systems Review of Systems: Yes all other systems are reviewed and are negative <ANGELINA Morrison - Last Filed: 01/03/23 14:37> [facility] Past Medical History Medical History: Medical History (Updated 01/03/23 @ 14:32 by ANGELINA Morrison) Anxiety Cyst of left breast (~2008) Herniated intervertebral disc Renal cyst Urinary frequency <ANGELINA Morrison - Last Filed: 01/03/23 14:37> Surgical History: Surgical History H/O section H/O left breast biopsy (10/27/11) History of esophagogastroduodenoscopy (EGD) Hx of colonoscopy Hx of laparoscopy S/P breast biopsy Status post appendectomy Thyroid nodule <ANGELINA Morrison - Last Filed: 01/03/23 14:37> Family History Family History: Family History Father Suicide Mother Fibrous breast lumps H/O thyroidectomy Diabetes Brother Collapse of both lungs Kidney problem H/O thyroidectomy Son Family history of Klinefelter syndrome Maternal Grandmother Stomach cancer Maternal Grandfather Lung cancer Family/Other Breast cancer Depression Maternal Aunt Ovarian cancer Paternal Uncle History of open heart surgery Maternal Uncle Suicide <ANGELINA Morrison - Last Filed: 01/03/23 14:37> Social History Social History: Social History Household Members: Children Household Members Other:: 1 daughter, 2 sons Alcohol intake: never Cigarette Packs Per Day: 0.75 Cigarettes Per Day: 15.0 Smoked in Last 30 Days: No Use of substances other than those prescribed or required for medical reasons: No Advance Directives: No Advance Directives Information Provided: Yes <ANGELINA Morrison - Last Filed: 01/03/23 14:37> Physical Exam Vital Signs: Vital Signs: Last Vital Signs Temp 98.2 F 01/03/23 13:44 Pulse 100 01/03/23 13:44 Resp 16 01/03/23 13:44 BP 139/86 01/03/23 13:44 Pulse Ox 100 01/03/23 13:44 O2 Del Method Room Air 01/03/23 13:44 BMI result Body Mass Index 27.2 <ANGELINA Morrison - Last Filed: 01/03/23 14:37> Vital Signs: Last Vital Signs Temp 98.2 F 01/03/23 13:44 Pulse 100 01/03/23 13:44 Resp 16 01/03/23 13:44 BP 139/86 01/03/23 13:44 Pulse Ox 100 01/03/23 13:44 O2 Del Method Room Air 01/03/23 13:44 BMI result Body Mass Index 27.2 <Priya Tse MD - Last Filed: 01/03/23 15:34> Appearance: Alert. Oriented X3. No acute distress. Head: normocephalic, atraumatic. Eyes: Pupils equal, round and reactive to light. ENT: Pharynx normal. No tonsillar swelling or exudate. clear nasal congestion bilaterally. Neck: Normal inspection. Neck supple. CVS: Normal heart rate and rhythm. Pulses normal. Respiratory: No respiratory distress. Breath sounds normal. Skin: Skin warm and dry. Normal skin color. Normal skin turgor. No rashes. Extremities: No lower extremity edema. No joint swelling. Neuro/psych: Oriented X 3. Grossly normal, nonfocal. Normal speech and cognition. <ANGELINA Morrison - Last Filed: 01/03/23 14:37> Medical Decision Making Medical Decision Making [facility] Narrative: 52-year-old female presents to the ER for evaluation after she was found to be COVID positive at home. Her vital signs are stable and her lungs are clear. She is vaccinated for COVID. She was found to be COVID positive here as well. She was counseled on diagnosis, management, supportive care and return precautions. Will send her home with medications for her seasonal allergies as well as antitussive agent. Stable for discharge home. <ANGELINA Morrison - Last Filed: 01/03/23 14:37> Differential Diagnosis Differential Diagnoses: The differential diagnosis associated with the presentation includes <ANGELINA Morrison - Last Filed: 01/03/23 14:37> strep, covid, flu, rsv, other viral syndrome, bronchitis, pneumonia, Seasonal allergies <ANGELINA Morrison - Last Filed: 01/03/23 14:37> Lab Data [facility] Lab Attestation statement: I reviewed the patient's lab results. <ANGELINA Morrison - Last Filed: 01/03/23 14:37> Labs: Lab Results 01/03/23 Range/Units 13:49 COVID-19 (ONEIL) Positive A (Negative) COVID-19 Clin Com See Note <ANGELINA Morrison - Last Filed: 01/03/23 14:37> Lab Results 01/03/23 Range/Units 13:49 COVID-19 (ONEIL) Positive A (Negative) COVID-19 Clin Com See Note <Priya Tse MD - Last Filed: 01/03/23 15:34> External Record Review External record reviewed: Office record, Outpatient record, Prior outpatient labs and Prior outpatient radiology <ANGELINA Morrison - Last Filed: 01/03/23 14:37> Prescription Management I considered prescription management with: Antiviral <ANGELINA Morrison - Last Filed: 01/03/23 14:37> Four days into illness, does not qualify for paxlovid <ANGELINA Morrison - Last Filed: 01/03/23 14:37> Critical Care Time Critical Care Time Critical Care Time: No <ANGELINA Morrison - Last Filed: 01/03/23 14:37> Discharge Plan Discharge Clinical Impression: COVID-19 <ANGELINA Morrison - Last Filed: 01/03/23 14:37> Patient Disposition: Home, Self-Care <ANGELINA Morrison - Last Filed: 01/03/23 14:37> Instructions: COVID-19 (Coronavirus Disease 2019) (ED) <ANGELINA Morrison - Last Filed: 01/03/23 14:37> Additional Instructions: You were found to be COVID-19 POSITIVE today. Your exam oxygen levels were normal. Rest. Drink plenty of fluids. Do not go out in public while you are not feeling well Take over the counter cold/flu medications as needed for your symptoms. Take Tylenol and/or Motrin as needed for fevers and body aches. Take the prescribed medications as directed. Follow up with your doctor as needed If you develop new or worsening symptoms call 911 or come back to the ER for further evaluation. <ANGELINA Morrison - Last Filed: 01/03/23 14:37> Prescriptions: New fluticasone propionate [Children's Flonase Allergy Rlf] 50 mcg/actuation spray,suspension 1 spray intranasal Q12H Qty: 16 0RF Rx Instructions: administer into each nostril Zyrtec 10 mg capsule 10 mg PO DAILY Qty: 30 0RF benzonatate 100 mg capsule 100 mg PO TID PRN (Reason: cough) Qty: 30 0RF No Action sumatriptan succinate 50 mg tablet 50 mg PO Q2-4H PRN (Reason: migraine headache) Qty: 10 0RF Rx Instructions: do not exceed 4 doses per 24 hrs fluticasone propionate 50 mcg/actuation spray,suspension 2 spray intranasal DAILY loratadine 10 mg tablet 10 mg PO DAILY hydroxyzine HCl 50 mg tablet 50 mg PO TID naproxen 500 mg tablet 500 mg PO Q12H PRN (Reason: pain) paroxetine HCl 20 mg tablet 20 mg PO DAILY duloxetine 20 mg capsule,delayed release(DR/EC) 20 mg PO DAILY paroxetine HCl 20 mg tablet 20 mg PO DAILY omeprazole 20 mg capsule,delayed release(DR/EC) 20 mg PO BID 90 Days Qty: 180 2RF polyethylene glycol 3350 [Miralax] 17 gram/dose powder 17 g PO BID 30 Days Qty: 1020 1RF cyclobenzaprine 5 mg tablet 5 mg PO TID PRN (Reason: muscle spasm) Qty: 90 0RF cholecalciferol (vitamin D3) 50 mcg (2,000 unit) tablet 50 mcg PO DAILY albuterol sulfate 90 mcg/actuation HFA aerosol inhaler 2 puff PO QID famotidine 20 mg tablet 20 mg PO DAILY celecoxib 200 mg capsule PO BID solifenacin 10 mg tablet 10 mg PO DAILY <ANGELINA Morrison - Last Filed: 01/03/23 14:37> Stand Alone Forms: Work/School Release <ANGELINA Morrison - Last Filed: 01/03/23 14:37> Interventions: ED Discharge Assessment Last Done: 01/03/23 14:48 <ANGELINA Morrison - Last Filed: 01/03/23 14:37> Discharge Date/Time: 01/03/23 14:49 <ANGELINA Morrison - Last Filed: 01/03/23 14:37>
--- NOTE | 2023-01-03 14:47 | PC.NURSE ---
Patient presents for COVID test. Patient with cough and feeling feverish, it otherwise well appearing at time of assessment, lung sounds are CTA. Patient is calm and cooperative sitting in results pending.
== END 2023-01-03 14:49 | disposition home or self-care (01) ==
PROVIDERS: Emergency Provider Emergency Medicine
DX: U07.1 COVID-19 (principal); F17.210 Nicotine dependence, cigarettes, uncomplicated; Z71.6 Tobacco abuse counseling; Z79.899 Other long term (current) drug therapy
CPT/HCPCS: 87635; 99283; 99284